=== PATIENT | female | born 1940 | race Caucasian/White ===

== ENCOUNTER 2016-10-15 17:15 | Inpatient (IN) ==
--- NOTE | 2016-10-15 17:28 | Emergency Department Note ---
Disposition Clinical Impression: Acute exacerbation of chronic obstructive airways disease, Community acquired pneumonia Disposition: Admitted As Inpatient SOB HPI - General Chief Complaint: ED Shortness of Breath/Dyspnea Stated Complaint: bi lateral pneumonia Time Seen by Provider: 10/15/16 17:28 Source: patient, family Mode of arrival: private vehicle Limitations: no limitations Nursing Notes Reviewed: Yes Vital Signs Reviewed: Yes - History of Present Illness Patient reports that she has had increased cough which has been dry for about 3 weeks. Last 24 hour she has had more cough, fever, wheezing and weakness. She reports she occasionally has had some nausea or vomiting, but mainly with cough. She went to urgent care today and had a negative flu swab and a chest x- ray read as likely bilateral basilar pneumonia. She was written for clarithromycin and had gone this [facility] They did not have the antibiotic available and she is coming here for recheck. She denies any chest pain. She states she does have home oxygen, home inhalers and nebulized treatments. She states she is here because she is just too weak to go home. Pt Subjective Complaint: shortness of breath, cough Onset (ago): week(s) Context: recent illness Severity: moderate Consistency/Duration: gradually worsening Improves with: oxygen Worsens with: exertion, coughing Known history of: COPD, congestive heart failure Associated symptoms: Reports: fever, cough, wheezing, sputum production, nausea/ vomiting. Denies: chest pain, pain with inspiration, orthopnea, lower extremity pain, polyuria, polydipsia, parasthesias, palpitations, hemoptysis, diaphoresis, syncope, abdominal pain, rash Treatment prior to arrival: oxygen, bronchodilator Cough present: Yes Cough Description: Voluntary, Non-Productive, Hacking Cough Frequency: Intermittent Sputum production: No - Related Data Home oxygen amount: 2 liters (When necessary) Home Medications Medication Instructions Recorded Confirmed Aspirin [Adult Low Dose Aspirin EC] 162 mg PO DAILY 06/07/15 10/15/16 Labetalol [Trandate] 300 mg PO BID 06/07/15 10/15/16 Sertraline [Zoloft] 100 mg PO DAILY 06/07/15 10/15/16 Previous Rx's Medication Instructions Recorded Benzonatate [Tessalon] 200 mg PO TID PRN #0 capsule 07/28/16 CloNIDine HCl 0.2 mg PO BID tablet 07/28/16 HydrALAZINE 50 mg PO Q8HR 30 Days 07/28/16 Ipratropium/Albuterol Neb [Duoneb] 3 ml IH [id number] PRN #0 inhsol 07/28/16 Benzonatate [Tessalon] 100 mg PO TID #30 capsule 10/15/16 Clarithromycin 250 mg PO BID #14 tablet 10/15/16 Guaifenesin [Mucinex] 600 mg PO BID #20 tab.er.12h 10/15/16 PredniSONE [Deltasone] 20 mg PO DAILY #12 tablet 10/15/16 Allergies Allergy/AdvReac Type Severity Reaction Status Date / Time amlodipine [From Norvasc] Allergy Hives Verified 10/15/16 12:10 Amoxicillin Allergy Hives Verified 10/15/16 12:10 atorvastatin [From Lipitor] Allergy Hives Verified 10/15/16 12:10 cefdinir [From Omnicef] Allergy Hives Verified 10/15/16 12:10 cefuroxime [From Ceftin] Allergy Hives Verified 10/15/16 12:10 cephalexin [From Keflex] Allergy Hives Verified 10/15/16 12:10 ciprofloxacin [From Cipro] Allergy Hives Verified 10/15/16 12:10 doxycycline Allergy Hives Verified 10/15/16 12:10 fluoxetine [From Prozac] Allergy Hives Verified 10/15/16 12:10 iodine Allergy Hives Verified 10/15/16 12:10 levofloxacin [From Levaquin] Allergy Hives Verified 10/15/16 12:10 metoprolol Allergy Hives Verified 10/15/16 12:10 nifedipine Allergy Hives Verified 10/15/16 12:10 Paroxetine [From Paxil] Allergy Hives Verified 10/15/16 12:10 Prazosin Allergy Hives Verified 10/15/16 12:10 Saxagliptin [From Onglyza] Allergy Hives Verified 10/15/16 12:10 simvastatin [From Zocor] Allergy Hives Verified 10/15/16 12:10 sitagliptin [From Januvia] Allergy Hives Verified 10/15/16 12:10 sulfamethoxazole Allergy Hives Verified 10/15/16 12:10 [From Bactrim] trimethoprim [From Bactrim] Allergy Hives Verified 10/15/16 12:10 Oxycodone AdvReac Headache Verified 10/15/16 12:10 All systems ED: reviewed and negative except as stated. Past Medical History - Past Medical History Attestation: Yes The following information was validated with the patient. Source: patient, obtained from family, nursing notes reviewed Medical history: Reports: arthritis, asthma, cancer, CHF, COPD, DVT, diabetes, GERD, hyperlipidemia, hypertension, kidney stones, malignancy, osteoporosis, peripheral artery disease, renal disease, venous stasis, other Surgical history: Reports: appendectomy, cancer surgery (Left nephrectomy for renal cell carcinoma), cholecystectomy, knee replacement, other Psychiatric history: Reports: anxiety, depression, other CABLE REELER history: Reports: no CABLE REELER history - Social History Smoking Status: Never smoker Smokeless Tobacco Status: No Alcohol use: Reports: none Drug use: Reports: none Physical Exam - General Limitations: no limitations General appearance: alert, in distress - Head Head exam: atraumatic, normocephalic, normal inspection - Eye Eye exam: Present: normal appearance, PERRL, EOMI - ENT ENT exam: normal exam, normal oropharynx, mucous membranes moist - Neck Neck exam: Present: normal inspection, full ROM, trachea midline - Chest Chest inspection: Present: normal inspection, symmetric chest wall rise - Respiratory Respiratory exam: Present: wheezes, prolonged expiratory phase. Absent: respiratory distress, accessory muscle use - Cardiovascular Cardiovascular exam: Present: regular rate, normal rhythm, normal heart sounds. Absent: tachycardia - Abdominal Exam Abdominal exam: Present: soft, Non-Tender, normal bowel sounds. Absent: tenderness, distention, guarding, rebound, rigidity - Extremities Exam Extremities exam: Present: normal inspection, full ROM, normal capillary refill. Absent: tenderness, pedal edema - Expanded Lower Extremity Exam Neurovascular/Tendon exam: Present: normal capillary refill. Absent: motor deficit, sensory deficit, tendon deficit Gait: not tested/not observed - Back Exam Back exam: Present: normal inspection, full ROM. Absent: tenderness, CVA tenderness (R), CVA tenderness (L) - Neurological Exam Neurological exam: Present: alert, oriented X3 - Psychiatric Psychiatric exam: Present: normal affect, normal mood - Skin Skin exam: Present: warm, dry, intact, normal color. Absent: diaphoresis, pallor Course Course Narrative: Care discussed with length with the patient, family and ultimately with Dr. Pennington. Given there earlier x-ray findings he is agreeable to have her in for IV fluids, IV antibiotics and respiratory treatment. I am coordinating inpatient bed with orders received. Vital Signs Temperature 100.1 F H 10/15/16 17:18 Pulse Rate 76 10/15/16 17:18 Respiratory Rate 18 10/15/16 17:18 Blood Pressure 127/78 10/15/16 17:18 O2 Sat by Pulse Oximetry 91 L 10/15/16 17:18 Temperature 100.1 F H 10/15/16 17:39 Pulse Rate 76 10/15/16 17:39 Respiratory Rate 18 10/15/16 17:39 Blood Pressure 127/78 10/15/16 17:39 O2 Sat by Pulse Oximetry 91 L 10/15/16 17:39 Oxygen Delivery Oxygen Delivery Room Air Shortness of Breath/Dyspnea - Differential Diagnosis Likely: acute exacerbation of chronic obstructive airways disease, pneumonia - Medical Records Medical records reviewed: Yes I reviewed the patient's medical records. Patient's chest x-ray from earlier today demonstrated "left and possible right basilar airspace disease", "likely pneumonia". - Lab Data Lab results reviewed: Yes I reviewed the patient's lab results. Result diagrams: 10/15/16 17:59 Lab Results 10/15/16 10/15/16 Range/Units 17:59 17:59 WBC 9.3 (4.3-11.1) K/mcL RBC 4.29 (3.82-4.97) M/mcL Hgb 11.3 L (11.5-15.4) g/dL Hct 35.6 (35.3-44.9) % MCV 83.0 (83.0-100.0) fL MCH 26.3 L (28.0-33.3) pg MCHC 31.7 (31.6-35.5) g/dL RDW 15.2 H (11.5-14.5) % Plt Count 110 L (140-400) K/mcL MPV 10.6 (9.4-12.4) fL Immature Gran % 0.4 (0-4) % Seg Neutrophils % 81.6 % Lymphocytes % 9.0 % Monocytes % 8.3 % Eosinophils % 0.4 % Basophils % 0.3 % Neutrophils # 7.6 (1.6-8.9) K/mcL Lymphocytes # 0.8 (0.6-4.6) K/mcL Monocytes # 0.8 (0.0-1.3) K/mcL Eosinophils # 0.0 (0.0-0.6) K/mcL Basophils # 0.0 (0.0-0.2) K/mcL VBG Lactic Acid 0.9 (0.5-2.2) mmol/L
[2016-10-15] MEDS ORDERED: Azithromycin 500 MG in D5% in Water 250 ML IVPB ONE (17:39)
[2016-10-15] MEDS ORDERED: 0.9 % Sodium Chloride 1,000 ML IVC SCH ×3 (17:45→21:42)
[2016-10-15 18:09] LABS: Basophils % 0.3 %; Eosinophils % 0.4 %; Hematocrit 35.6 % (35.3-44.9); Hemoglobin 11.3 g/dL (11.5-15.4); Immature Granulocytes % 0.4 % (0-4); Lymphocytes # 0.8 K/mcL (0.6-4.6); Mean Corpuscular HGB Conc 31.7 g/dL (31.6-35.5); Mean Corpuscular Hemoglobin 26.3 pg (28.0-33.3); Mean Platelet Volume 10.6 fL (9.4-12.4); Monocytes # 0.8 K/mcL (0.0-1.3); Monocytes % 8.3 %; Neutrophils # 7.6 K/mcL (1.6-8.9); Platelet Count 110 K/mcL (140-400); Red Blood Count 4.29 M/mcL (3.82-4.97); Red Cell Distribution Width 15.2 % (11.5-14.5); Segmented Neutrophils % 81.6 %
[2016-10-15 18:23] LABS: Calcium 8.5 mg/dL (8.6-10.8); Potassium 3.1 mEq/L (3.5-4.5)
[2016-10-15] MEDS ORDERED: Naloxone 0.4 MG/ML INJ IVP PRN (21:42)
[2016-10-15] MEDS ORDERED: MOM Conc 10 ML UD.LIQ PO PRN (21:42)
[2016-10-16] MEDS: Acetaminophen 325 MG TABLET PO PRN ×3 (00:03→22:45)
[2016-10-16] MEDS: Benzonatate 100 MG CAPSULE PO PRN ×3 (06:11→20:50)
[2016-10-16] MEDS: Albuterol 2.5 MG/3 ML NEBULIZER IH PRN ×4 (06:30→22:14)
[2016-10-16] MEDS ORDERED: Azithromycin 250 MG in D5% in Water 250 ML IVPB SCH (09:00)
--- NOTE | 2016-10-16 14:10 | Internal Med History&Physical ---
Date of Encounter: 10/16/16 Time of Encounter: 13:40 Assessment and Plan (1) Community acquired pneumonia Current visit: Yes Status: Acute She will be given Zithromax IV. Lactobacillus will be added. (2) Anemia Current visit: No Status: Chronic We will check anemia testing in a.m. Qualifiers: Anemia type: unspecified type Qualified Code(s): D64.9 - Anemia, unspecified (3) Type 2 diabetes mellitus Current visit: No Status: Chronic Hemoglobin A1c was 7.2% on 03/28/2016. We will recheck in a.m. Qualifiers: Diabetes mellitus mcfp insulin use: unspecified mcfp insulin use status Chronic kidney disease stage: stage 3 (moderate) Qualified Code(s): E11.22 - Type 2 diabetes mellitus with diabetic chronic kidney disease; N18.3 - Chronic kidney disease, stage 3 (moderate) (4) Gout Current visit: Yes Status: Acute We will check uric acid level in a.m. Allopurinol was not on her home medication list at this time. Qualifiers: Gout site: unspecified site Gout etiology: unspecified cause Chronicity: chronic Presence of tophus: without tophus Qualified Code(s): M1A.9XX0 - Chronic gout, unspecified, without tophus (tophi) Internal Medicine - H&P: HPI Chief complaint: Cough , dyspnea, and vomiting Admitted From: Home Plans for Post Hospital Care: Home History of present illness: Ms. Thorpe is a 76 year old female who came to emergency room stating she had onset of a cough approximately 3 weeks earlier. She did not feel well overall. The evening of October 14 her cough seemed worse and she developed fevers and myalgias. She went to urgent care on the following day where chest x-ray showed bibasilar infiltrates. She tested negative for influenza. She was directed to come to emergency room where she was further evaluated and admitted to [facility] floor for ongoing care needs. Her respiratory history is significant for having smoked from age [age] up to one half pack per day. She wears oxygen at bedtime. She has a diagnosis of asthma and bronchitis. She has been diagnosed with sleep apnea but does not presently use CPAP/BiPAP. Past Med Surg Social Fam HX - Past Medical History Medical history: arthritis, asthma, cancer, CHF, COPD, GERD, hyperlipidemia, hypertension, kidney stones, malignancy, osteoporosis, peripheral artery disease , renal disease, venous stasis, other Psychiatric history: anxiety, depression, other - Past Surgical History Surgical History: appendectomy, cancer surgery, cholecystectomy, knee replacement, other - Social History Smoking Status: Former smoker Packs per day: 1 pack Smokeless Tobacco Status: No Alcohol use: none Drug use: none - Family History Mother Living Status: Hx Family Cardiac Disorders: Yes Hx Family Respiratory Disorders: No Hx Family Cancer: No Hx Family GI Disorders: No Hx Family Genitourinary Disorders: No Hx Family Endocrine Disorder: No Hx Family Neuromuscular Disorders: No Hx Family Neurologic Disorders: No Hx Family HEENT Disorders: No Hx Family Autoimmune Disorders: No Hx Family Reproductive Disorders: No Hx Family Psychosocial Disorders: No Hx Family Medical Disorders: No Internal Medicine - H&P: Meds Aspirin [Adult Low Dose Aspirin EC] 162 mg PO DAILY 06/07/15 [History] Labetalol [Trandate] 300 mg PO BID 06/07/15 [History] Sertraline [Zoloft] 100 mg PO DAILY 06/07/15 [History] Benzonatate [Tessalon] 200 mg PO TID PRN #0 capsule 07/28/16 [Rx] CloNIDine HCl 0.2 mg PO BID tablet 07/28/16 [Rx] HydrALAZINE 50 mg PO Q8HR 30 Days 07/28/16 [Rx] Ipratropium/Albuterol Neb [Duoneb] 3 ml IH [id number] PRN #0 inhsol 07/28/16 [Rx] Benzonatate [Tessalon] 100 mg PO TID #30 capsule 10/15/16 [Rx] Clarithromycin 250 mg PO BID #14 tablet 10/15/16 [Rx] Guaifenesin [Mucinex] 600 mg PO BID #20 tab.er.12h 10/15/16 [Rx] PredniSONE [Deltasone] 20 mg PO DAILY #12 tablet 10/15/16 [Rx] Allergies amlodipine [From Norvasc] Allergy (Verified 10/15/16 12:10) Hives Amoxicillin Allergy (Verified 10/15/16 12:10) Hives atorvastatin [From Lipitor] Allergy (Verified 10/15/16 12:10) Hives cefdinir [From Omnicef] Allergy (Verified 10/15/16 12:10) Hives cefuroxime [From Ceftin] Allergy (Verified 10/15/16 12:10) Hives cephalexin [From Keflex] Allergy (Verified 10/15/16 12:10) Hives ciprofloxacin [From Cipro] Allergy (Verified 10/15/16 12:10) Hives doxycycline Allergy (Verified 10/15/16 12:10) Hives fluoxetine [From Prozac] Allergy (Verified 10/15/16 12:10) Hives iodine Allergy (Verified 10/15/16 12:10) Hives levofloxacin [From Levaquin] Allergy (Verified 10/15/16 12:10) Hives metoprolol Allergy (Verified 10/15/16 12:10) Hives nifedipine Allergy (Verified 10/15/16 12:10) Hives Paroxetine [From Paxil] Allergy (Verified 10/15/16 12:10) Hives Prazosin Allergy (Verified 10/15/16 12:10) Hives Saxagliptin [From Onglyza] Allergy (Verified 10/15/16 12:10) Hives simvastatin [From Zocor] Allergy (Verified 10/15/16 12:10) Hives sitagliptin [From Januvia] Allergy (Verified 10/15/16 12:10) Hives sulfamethoxazole [From Bactrim] Allergy (Verified 10/15/16 12:10) Hives trimethoprim [From Bactrim] Allergy (Verified 10/15/16 12:10) Hives Oxycodone Adverse Reaction (Verified 10/15/16 12:10) Headache All Systems PM: A 10-system review of systems was performed and is negative for pertinent findings except as documented above in the HPI. Review of systems: Gen.: Her weight has been stable since the May 2015 hospitalization at approximately 82 kg Cardiovascular: She has history of hypertension and PVCs. She has not seen a scoop operator since approximately 2012 She has no known OR heart failure DVT or pulmonary embolus. Respiratory: As per history of present illness GI: She had a cholecystectomy 2000 but denies disorders of her liver or exocrine pancreas : She has had kidney stones in the past. She had left renal cancer with left nephrectomy performed in 1995. This apparently was curative. She has CKD stage 3-4 and follows with a [employer] Neurologic: She denies large distribution strokes or seizures. Endocrine: She was diagnosed with DM 2 approximately 2003. 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 She now uses a motorized wheelchair. She denies known thyroid disease. Hematology/oncology: She had left renal cancer as per above but denies other internal malignancies or anemia Musculoskeletal: She has diagnoses of gout, DJD, and osteoporosis. - Constitutional Vitals: Temp Pulse Resp BP Pulse Ox 99.6 F 75 20 167/81 96 10/16/16 06:49 10/16/16 06:49 10/16/16 12:59 10/16/16 06:49 10/16/16 12:59 Exam: Gen.: She is well-developed well-nourished female sitting in a chair who appears in minimal respiratory distress at present time. HEENT: Head is atraumatic and normocephalic. Eyes: EOMI. There is no scleral icterus. Mouth: Mucosa is moist. Neck: Supple and nontender. There is no thyromegaly or adenopathy noted. Heart: Regular without murmurs gallops or ectopics. Lungs: No wheezes or crackles are heard. Abdomen: Soft and nontender. No masses or guarding are noted. Exam is limited because she is in the seated position. Extremities: There is no cyanosis edema or clubbing noted. Dorsalis pedis and posterior tibial pulses are 1-2 over 2 bilaterally. Neurologic: Mental status: She is talkative and a good historian. Cranial nerves: Smile is symmetric. Forehead wrinkles bilaterally. Tongue protrudes midline. EOMI. Motor: There is no pronator drift. Cerebellar: Finger to nose is intact bilaterally. Skin: Warm and dry Internal Med - H&P Results - Labs CBC & Chem 7: 10/15/16 17:59 10/15/16 17:59 - VTE Documentation of Mechanical Device: Graduated compression elastic hosiery
[2016-10-16] MEDS: 0.45 % Sodium Chloride w/KCl 20 MEQ/1,000 ML MLS IVC SCH (14:31)
[2016-10-16] MEDS: *HR* Enoxaparin 30 MG/0.3 ML SYRINGE SQ SCH ×2 (15:32→15:56)
[2016-10-16] MEDS: Lactobacillus 1 EACH CAP.SPRINK PO SCH (20:39)
[2016-10-17] MEDS: Albuterol 2.5 MG/3 ML NEBULIZER IH PRN ×3 (05:17→22:05)
[2016-10-17] MEDS: 0.45 % Sodium Chloride w/KCl 20 MEQ/1,000 ML MLS IVC SCH (05:31)
[2016-10-17] MEDS: *HR* Enoxaparin 30 MG/0.3 ML SYRINGE SQ SCH (05:32)
[2016-10-17 06:29] LABS: Basophils % 0.4 %; Eosinophils # 0.1 K/mcL (0.0-0.6); Eosinophils % 2.6 %; Hematocrit 35.2 % (35.3-44.9); Hemoglobin 10.8 g/dL (11.5-15.4); Immature Granulocytes % 0.2 % (0-4); Lymphocytes # 1.1 K/mcL (0.6-4.6); Mean Corpuscular HGB Conc 30.7 g/dL (31.6-35.5); Mean Corpuscular Hemoglobin 26.2 pg (28.0-33.3); Mean Corpuscular Volume 85.2 fL (83.0-100.0); Mean Platelet Volume 11.3 fL (9.4-12.4); Monocytes # 0.6 K/mcL (0.0-1.3); Monocytes % 10.8 %; Neutrophils # 3.5 K/mcL (1.6-8.9); Red Blood Count 4.13 M/mcL (3.82-4.97); Red Cell Distribution Width 15.2 % (11.5-14.5)
[2016-10-17 06:57] LABS: Platelet Count 81 K/mcL (140-400)
[2016-10-17 07:09] LABS: Magnesium 1.8 mg/dL (1.6-2.6); Uric Acid 7.6 mg/dL (2.6-6.0)
[2016-10-17 08:17] LABS: Hemoglobin A1C 6.8 %
[2016-10-17] MEDS: Lactobacillus 1 EACH CAP.SPRINK PO SCH ×2 (08:26→22:37)
[2016-10-17] MEDS ORDERED: Azithromycin 500 MG in D5% in Water 250 ML IVPB SCH (11:00)
--- NOTE | 2016-10-17 11:09 | Internal Med Progress Note ---
Date of Encounter: 10/17/16 Time of Encounter: 10:45 - Assessment and plan (1) Community acquired pneumonia Current Visit: Yes Status: Acute Assessment and plan: October 17. Continue IV Zithromax. WBC and left shift have improved (2) Anemia Current Visit: No Status: Chronic Assessment and plan: October 17. Anemia testing is pending Qualifiers: Anemia type: unspecified type Qualified Code(s): D64.9 - Anemia, unspecified (3) Type 2 diabetes mellitus Current Visit: No Status: Chronic Assessment and plan: October 17. Hemoglobin A1c is acceptable at 6.8%. Continue Accu-Cheks with SSI Qualifiers: Diabetes mellitus termite renewal inspector insulin use: unspecified termite renewal inspector insulin use status Chronic kidney disease stage: stage 3 (moderate) Qualified Code(s): E11.22 - Type 2 diabetes mellitus with diabetic chronic kidney disease; N18.3 - Chronic kidney disease, stage 3 (moderate) (4) Gout Current Visit: Yes Status: Acute Assessment and plan: October 17. Uric acid level is elevated at 7.6%. We will restart allopurinol Qualifiers: Gout site: unspecified site Gout etiology: unspecified cause Chronicity: chronic Presence of tophus: without tophus Qualified Code(s): M1A.9XX0 - Chronic gout, unspecified, without tophus (tophi) - Subjective Interval history: October 17. She has no new complaints and states she feels improved. - Constitutional Vitals: Temp Pulse Resp BP Pulse Ox 98.7 F 60 20 162/65 99 10/17/16 08:17 10/17/16 08:17 10/17/16 08:17 10/17/16 08:17 10/17/16 08:34 Exam: She is resting comfortably in bed. Her affect is bright and cheerful. She is talkative and appropriate in conversation. Her lungs show few expiratory wheezes diffusely. No inspiratory crackles are heard. I reviewed her medications and lab results. Internal Medicine: Result - Labs CBC & Chem 7: 10/17/16 05:17 10/15/16 17:59 Labs: Short CBC 10/17/16 Range/Units 05:17 WBC 5.3 (4.3-11.1) K/mcL Hgb 10.8 L (11.5-15.4) g/dL Hct 35.2 L (35.3-44.9) % Plt Count 81 L (140-400) K/mcL Neutrophils # 3.5 (1.6-8.9) K/mcL - VTE Documentation of Mechanical Device: Graduated compression elastic hosiery Consult Discharge Plan - Plan Referrals: Mark Hernandez DO [Primary Care Provider] - 1 week
[2016-10-17 11:23] LABS: Folate 13.2 ng/mL (7.0-31.4)
[2016-10-17] MEDS: Budesonide/Formoterol 160/4.5 MDI IH SCH ×2 (11:26→22:05)
[2016-10-17] MEDS: Azithromycin 500 MG in D5% in Water 250 ML IVPB SCH (12:22)
[2016-10-17] MEDS: PredniSONE 10 MG TABLET PO SCH ×2 (12:22→17:35)
[2016-10-17 16:16] LABS: Calcium 8.2 mg/dL (8.6-10.8)
[2016-10-17] MEDS: Benzonatate 100 MG CAPSULE PO PRN (22:37)
[2016-10-18] MEDS: *HR* Enoxaparin 30 MG/0.3 ML SYRINGE SQ SCH (05:48)
[2016-10-18] MEDS: Lactobacillus 1 EACH CAP.SPRINK PO SCH ×2 (08:48→21:21)
[2016-10-18] MEDS: PredniSONE 10 MG TABLET PO SCH ×2 (08:49→16:23)
[2016-10-18] MEDS: Albuterol 2.5 MG/3 ML NEBULIZER IH PRN ×5 (09:54→20:20)
[2016-10-18] MEDS: Budesonide/Formoterol 160/4.5 MDI IH SCH ×2 (09:54→21:59)
[2016-10-18] MEDS: Benzonatate 100 MG CAPSULE PO PRN ×2 (10:00→22:15)
--- NOTE | 2016-10-18 11:40 | Internal Med Progress Note ---
Date of Encounter: 10/18/16 Time of Encounter: 11:30 - Assessment and plan (1) Community acquired pneumonia Current Visit: Yes Status: Acute Assessment and plan: October 17. Continue IV Zithromax. WBC and left shift have improved October 18. Continue IV Zithromax. We will recheck labs in a.m. (2) Anemia Current Visit: No Status: Chronic Assessment and plan: October 17. Anemia testing is pending October 18. Anemia test results showed iron 18, transferrin saturation 5%, ferritin 115, and B12 183. I will start her on ferrous sulfate with vitamin C and B12 supplement. Qualifiers: Anemia type: unspecified type Qualified Code(s): D64.9 - Anemia, unspecified (3) Type 2 diabetes mellitus Current Visit: No Status: Chronic Assessment and plan: October 17. Hemoglobin A1c is acceptable at 6.8%. 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 Uric acid level is elevated at 7.6%. We will restart allopurinol October 18. Continue allopurinol Qualifiers: Gout site: unspecified site Gout etiology: unspecified cause Chronicity: chronic Presence of tophus: without tophus Qualified Code(s): M1A.9XX0 - Chronic gout, unspecified, without tophus (tophi) (5) Hypertension Current Visit: Yes Status: Chronic Assessment and plan: October 18. Blood pressures are inadequately controlled with clonidine, hydralazine, and labetalol at present doses. Will increase hydralazine Qualifiers: Hypertension type: essential hypertension Qualified Code(s): I10 - Essential (primary) hypertension (6) Hypokalemia Current Visit: Yes Status: Acute Assessment and plan: October 18. We will give potassium supplement and recheck labs in a.m. - Subjective Interval history: October 17. She has no new complaints and states she feels improved. October 18. She still has significant dyspnea. - Constitutional Vitals: Temp Pulse Resp BP Pulse Ox 98.7 F 62 18 158/85 97 10/18/16 11:15 10/18/16 11:15 10/18/16 11:15 10/18/16 06:56 10/18/16 11:15 Exam: She is lying in bed. She has prolonged expiratory phase with mild wheezing and scattered rhonchi. Heart is regular without murmurs gallops or ectopics. Extremities show no edema. I reviewed her medications and lab results. Internal Medicine: Result - Labs CBC & Chem 7: 10/17/16 05:17 10/17/16 10:42 Labs: BMP 10/17/16 10:42 Sodium 141 Potassium 3.0 L Chloride 102 Carbon Dioxide 26 BUN 21 H Creatinine 1.17 H Glucose 122 H Calcium 8.2 L - VTE Documentation of Mechanical Device: Graduated compression elastic hosiery Consult Discharge Plan - Plan Referrals: Mark Hernandez DO [Primary Care Provider] - 1 week
[2016-10-18] MEDS ORDERED: Cyanocobalamin (B-12) 1,000 MCG/ML VIAL IM ONE (11:46)
[2016-10-18] MEDS: Azithromycin 500 MG in D5% in Water 250 ML IVPB SCH (12:08)
[2016-10-19] MEDS: Albuterol 2.5 MG/3 ML NEBULIZER IH PRN ×2 (00:43→07:45)
[2016-10-19 03:12] VITALS: BP 161/84
[2016-10-19 05:06] LABS: Basophils % 0.2 %; Hematocrit 35.6 % (35.3-44.9); Hemoglobin 10.9 g/dL (11.5-15.4); Immature Granulocytes % 0.9 % (0-4); Lymphocytes # 1.1 K/mcL (0.6-4.6); Lymphocytes % 19.8 %; Mean Corpuscular HGB Conc 30.6 g/dL (31.6-35.5); Mean Platelet Volume 11.5 fL (9.4-12.4); Monocytes # 0.6 K/mcL (0.0-1.3); Monocytes % 10.9 %; Neutrophils # 3.9 K/mcL (1.6-8.9); Platelet Count 119 K/mcL (140-400); Red Blood Count 4.19 M/mcL (3.82-4.97); Red Cell Distribution Width 14.9 % (11.5-14.5); Segmented Neutrophils % 68.2 %
[2016-10-19 05:22] LABS: Calcium 8.7 mg/dL (8.6-10.8); Potassium 3.7 mEq/L (3.5-4.5)
[2016-10-19] MEDS ORDERED: Ascorbic Acid 500 MG TABLET PO SCH (06:30)
[2016-10-19] MEDS: Budesonide/Formoterol 160/4.5 MDI IH SCH (07:45)
[2016-10-19] MEDS: *HR* Enoxaparin 30 MG/0.3 ML SYRINGE SQ SCH (07:52)
[2016-10-19] MEDS: Lactobacillus 1 EACH CAP.SPRINK PO SCH (07:53)
[2016-10-19] MEDS: PredniSONE 10 MG TABLET PO SCH (07:54)
--- NOTE | 2016-10-19 10:10 | Discharge Summary ---
Date of Encounter: 10/19/16 Time of Encounter: 09:50 - Discharge Diagnosis (1) Community acquired pneumonia Priority: Primary Status: Acute (2) Anemia Priority: Secondary Status: Chronic Qualifiers: Anemia type: unspecified type Qualified Code(s): D64.9 - Anemia, unspecified (3) Type 2 diabetes mellitus Priority: Secondary Status: Chronic Qualifiers: Diabetes mellitus fci insulin use: unspecified fci insulin use status Chronic kidney disease stage: stage 3 (moderate) Qualified Code(s): E11.22 - Type 2 diabetes mellitus with diabetic chronic kidney disease; N18.3 - Chronic kidney disease, stage 3 (moderate) (4) Gout Priority: Secondary Status: Acute Qualifiers: Gout site: unspecified site Gout etiology: unspecified cause Chronicity: chronic Presence of tophus: without tophus Qualified Code(s): M1A.9XX0 - Chronic gout, unspecified, without tophus (tophi) (5) Hypertension Priority: Secondary Status: Chronic Qualifiers: Hypertension type: essential hypertension Qualified Code(s): I10 - Essential (primary) hypertension (6) Hypokalemia Priority: Secondary Status: Resolved - Discharge Medications Prescriptions: HydrALAZINE 50 mg PO Q8HR #180 tablet Allopurinol [Zyloprim 100 MG] 200 mg PO DAILY #60 tablet Ascorbic Acid [Vitamin C] 500 mg PO DAILY@0630 #30 tablet Azithromycin [Zithromax] 250 mg PO Q24H #3 tablet CloNIDine HCl 0.3 mg PO BID #180 tablet Cyanocobalamin (B-12) [Vitamin B12] 1,000 mcg PO DAILY #30 tablet Ferrous Sulfate 325 mg PO DAILY@0630 #30 tablet Lactobacillus [Culturelle] 1 each PO BID #6 cap.sprink PredniSONE 10 mg PO BIDWM #6 tablet Home Medications: Aspirin [Adult Low Dose Aspirin EC] 162 mg PO DAILY 06/07/15 [History] Labetalol [Trandate] 300 mg PO BID 06/07/15 [History] Sertraline [Zoloft] 100 mg PO DAILY 06/07/15 [History] Benzonatate [Tessalon] 200 mg PO TID PRN #0 capsule 07/28/16 [Rx] Ipratropium/Albuterol Neb [Duoneb] 3 ml IH [id number] PRN #0 inhsol 07/28/16 [Rx] Guaifenesin [Mucinex] 600 mg PO BID #20 tab.er.12h 10/15/16 [Rx] Allopurinol [Zyloprim 100 MG] 200 mg PO DAILY #60 tablet 10/19/16 [Rx] Ascorbic Acid [Vitamin C] 500 mg PO DAILY@0630 #30 tablet 10/19/16 [Rx] Azithromycin [Zithromax] 250 mg PO Q24H #3 tablet 10/19/16 [Rx] CloNIDine HCl 0.3 mg PO BID #180 tablet 10/19/16 [Rx] Cyanocobalamin (B-12) [Vitamin B12] 1,000 mcg PO DAILY #30 tablet 10/19/16 [Rx] Ferrous Sulfate 325 mg PO DAILY@0630 #30 tablet 10/19/16 [Rx] HydrALAZINE 50 mg PO Q8HR #180 tablet 10/19/16 [Rx] Lactobacillus [Culturelle] 1 each PO BID #6 cap.sprink 10/19/16 [Rx] PredniSONE 10 mg PO BIDWM #6 tablet 10/19/16 [Rx] Allergies/Adverse Reactions: Allergies amlodipine [From Norvasc] Allergy (Verified 10/15/16 12:10) Hives Amoxicillin Allergy (Verified 10/15/16 12:10) Hives atorvastatin [From Lipitor] Allergy (Verified 10/15/16 12:10) Hives cefdinir [From Omnicef] Allergy (Verified 10/15/16 12:10) Hives cefuroxime [From Ceftin] Allergy (Verified 10/15/16 12:10) Hives cephalexin [From Keflex] Allergy (Verified 10/15/16 12:10) Hives ciprofloxacin [From Cipro] Allergy (Verified 10/15/16 12:10) Hives doxycycline Allergy (Verified 10/15/16 12:10) Hives fluoxetine [From Prozac] Allergy (Verified 10/15/16 12:10) Hives iodine Allergy (Verified 10/15/16 12:10) Hives levofloxacin [From Levaquin] Allergy (Verified 10/15/16 12:10) Hives metoprolol Allergy (Verified 10/15/16 12:10) Hives nifedipine Allergy (Verified 10/15/16 12:10) Hives Paroxetine [From Paxil] Allergy (Verified 10/15/16 12:10) Hives Prazosin Allergy (Verified 10/15/16 12:10) Hives Saxagliptin [From Onglyza] Allergy (Verified 10/15/16 12:10) Hives simvastatin [From Zocor] Allergy (Verified 10/15/16 12:10) Hives sitagliptin [From Januvia] Allergy (Verified 10/15/16 12:10) Hives sulfamethoxazole [From Bactrim] Allergy (Verified 10/15/16 12:10) Hives trimethoprim [From Bactrim] Allergy (Verified 10/15/16 12:10) Hives Oxycodone Adverse Reaction (Verified 10/15/16 12:10) Headache Date of admission: 10/16/16 16:08 Primary care physician: Mark Hernandez, - Patient Status Disposition: Home, Self-Care Overall status at discharge: patient is progressing back to baseline - Discharge Instructions Follow Up With: Alejandra Osman, HEAD CD REACTOR OPERATOR [Advanced Practice Nurse] - 1 week - Diet and Activity Activity: resume usual activities as tolerated Diet: diabetic diet Hospital course: Ms. Thorpe is a 76 year old female who came to emergency room stating she had onset of a cough approximately 3 weeks earlier. She did not feel well overall. The evening of October 14 her cough seemed worse and she developed fevers and myalgias. She went to urgent care on the following day where chest x-ray showed bibasilar infiltrates. She tested negative for influenza. She was directed to come to emergency room where she was further evaluated and admitted to [facility] floor for ongoing care needs. Initial orders were written by the emergency room physician. I saw her on October 16 and performed the history and physical. She was started on IV Zithromax. She had multiple medication allergies which limited choice of antibiotics. She had clinical improvement and felt stable for discharge home by October 19. WBC remained normal during her hospital stay and was 5.7 K on the day of discharge with 68.2% segs. She will continue with anabiotic and probiotic for 3 additional days at discharge. Supplemental potassium was given her potassium level normalized to 3.7 by the day of discharge. Azotemia improved with creatinine being 1.11 and estimated GFR 48 on the day of discharge. Uric acid level returned elevated at 7.6 and she was restarted on allopurinol. Anemia testing showed iron low at 18, transferrin saturation 5%, and ferritin 115. B12 was low at 183 and folate normal at 13.2. She was started on supplement ferrous sulfate with vitamin C and oral B12. She felt significantly improved when I saw her on October 19 and felt stable for discharge home. She will follow with Alejandra Osman CNP within 1 week. - Time Spent with Patient Total time spent providing and/or coordinating discharge services: - Constitutional Vitals: Temp Pulse Resp BP Pulse Ox 98.1 F 72 16 161/84 98 10/19/16 03:12 10/19/16 03:12 10/19/16 07:49 10/19/16 03:12 10/19/16 07:49 - VTE Documentation of Mechanical Device: Graduated compression elastic hosiery
[2016-10-19] MEDS: Azithromycin 500 MG in D5% in Water 250 ML IVPB SCH (10:59)
[2016-10-19] MEDS ORDERED: PredniSONE 20 MG TABLET PO SCH (17:00)
[2016-10-20] MEDS ORDERED: Ascorbic Acid 500 MG TABLET PO SCH (06:30)
== END 2016-10-19 13:45 | disposition home or self-care (01) ==
LOC: INPPIK 17:15 → EMEROOPIK 17:15 → INPPIK 20:34
PROVIDERS: ADMIT Internal Medicine; ATTEND Internal Medicine

== ENCOUNTER 2017-03-12 22:46 | Observation (INO) ==
--- NOTE | 2017-03-12 22:55 | Emergency Department Note ---
Disposition Clinical Impression: Inability to ambulate due to ankle or foot Gout Qualifiers: Gout site: ankle Gout etiology: unspecified cause Chronicity: acute Laterality : left Qualified Code(s): M10.9 - Gout, unspecified Disposition: Admitted As Inpatient Condition: Fair Forms: ED Satisfaction Letter General Adult HPI - General Chief complaint: ED Extremity Injury, Lower Stated complaint: got gout Time Seen by Provider: 03/12/17 22:49 Source: patient, EMS Mode of arrival: EMS Limitations: no limitations Nursing Notes Reviewed: Yes Vital Signs Reviewed: Yes - History of Present Illness HPI Narrative: Patient presents from home by EMS stating "I got gout". She states she has had this before and this time is settled into the left ankle a couple days ago and also most recently to her right great toe. With the bilateral nature of this she is now having difficulty standing and walking and she has not been able to get out of bed to get to the bathroom or kitchen. She states she lives alone and is unable to care for herself at this time. She has been taking allopurinol last week which is increased to twice a day with a flare of her pain. She called her family doctor who called in some prednisone for her and she is advised to start taking that tomorrow morning. She has any other new pain or complaints other than she gets some headaches occasionally. She denies any fall or injury. She has chest pain or palpitation but has had some occasional shortness of breath. She denies nausea, vomiting, diarrhea or abdominal pain. She is on oxygen at night. Onset (ago): day(s) Location: left (Ankle), right (Great toe) Radiation: non-radiation Pain Severity: moderate, severe Quality: aching, sharp Consistency: Worsening Improves with: rest Worsens with: movement Associated symptoms: Reports: headaches, malaise. Denies: confusion, chest pain , cough, diaphoresis, fever/chills, loss of appetite, nausea/vomiting, rash, seizure, shortness of breath, syncope, weakness Treatments Prior to Arrival: other (Allopurinol) - Related Data Home Medications Medication Instructions Recorded Confirmed Aspirin [Adult Low Dose Aspirin EC] 162 mg PO DAILY 06/07/15 01/24/17 Labetalol [Trandate] 300 mg PO BID 06/07/15 01/24/17 Sertraline [Zoloft] 100 mg PO HS 06/07/15 01/24/17 Oxygen 2 l NS AD 10/30/16 01/24/17 Potassium Chloride [K-Tab ER] 10 meq PO DAILY 10/30/16 01/24/17 Triamterene/HCTZ 37.5/25mg 1 each PO DAILY 10/30/16 01/24/17 [Dyazide] hydrALAZINE [HydrALAZINE] 25 mg PO BID 10/30/16 01/24/17 Allopurinol [Zyloprim 100 MG] 200 mg PO DAILY PRN 01/24/17 03/12/17 methylPREDNISolone [Medrol] 03/12/17 Previous Rx's Medication Instructions Recorded Ipratropium/Albuterol Neb [Duoneb] 3 ml IH [id number] PRN #0 inhsol 07/28/16 Cyanocobalamin (B-12) [Vitamin B12] 1,000 mcg PO DAILY #30 tablet 10/19/16 cloNIDine HCl [CloNIDine HCl] 0.3 mg PO BID #180 tablet 10/19/16 Allergies Allergy/AdvReac Type Severity Reaction Status Date / Time amlodipine [From Norvasc] Allergy Hives Verified 01/24/17 19:17 Amoxicillin Allergy Hives Verified 01/24/17 19:17 atorvastatin [From Lipitor] Allergy Hives Verified 01/24/17 19:17 cefdinir [From Omnicef] Allergy Hives Verified 01/24/17 19:17 cefuroxime [From Ceftin] Allergy Hives Verified 01/24/17 19:17 cephalexin [From Keflex] Allergy Hives Verified 01/24/17 19:17 ciprofloxacin [From Cipro] Allergy Hives Verified 01/24/17 19:17 doxycycline Allergy Hives Verified 01/24/17 19:17 fluoxetine [From Prozac] Allergy Hives Verified 01/24/17 19:17 iodine Allergy Hives Verified 01/24/17 19:17 levofloxacin [From Levaquin] Allergy Hives Verified 01/24/17 19:17 metoprolol Allergy Hives Verified 01/24/17 19:17 nifedipine Allergy Hives Verified 01/24/17 19:17 Paroxetine [From Paxil] Allergy Hives Verified 01/24/17 19:17 Prazosin Allergy Hives Verified 01/24/17 19:17 Saxagliptin [From Onglyza] Allergy Hives Verified 01/24/17 19:17 simvastatin [From Zocor] Allergy Hives Verified 01/24/17 19:17 sitagliptin [From Januvia] Allergy Hives Verified 01/24/17 19:17 sulfamethoxazole Allergy Hives Verified 01/24/17 19:17 [From Bactrim] trimethoprim [From Bactrim] Allergy Hives Verified 01/24/17 19:17 Oxycodone AdvReac Headache Verified 01/24/17 19:17 All systems ED: reviewed and negative except as stated. Past Medical History - Past Medical History Attestation: Yes The following information was validated with the patient. Source: patient, old records reviewed, nursing notes reviewed Medical history: Reports: arthritis, asthma, cancer, CHF, COPD, hyperlipidemia, hypertension, kidney stones, malignancy, osteoporosis, peripheral artery disease , renal disease, venous stasis, other Surgical history: Reports: appendectomy, cancer surgery, cholecystectomy, knee replacement, other Psychiatric history: Reports: anxiety, depression, other LOGISTICS SUPPLY OFFICER history: Reports: no LOGISTICS SUPPLY OFFICER history - Social History Smoking Status: Never smoker Smokeless Tobacco Status: No Alcohol use: Reports: none Drug use: Reports: none Physical Exam - General Limitations: no limitations General appearance: alert, in no apparent distress - Head Head exam: atraumatic, normocephalic, normal inspection - Eye Eye exam: Present: normal appearance, PERRL, EOMI. Absent: scleral icterus, conjunctival injection - ENT ENT exam: normal exam, normal oropharynx, mucous membranes moist - Neck Neck exam: Present: normal inspection, full ROM, trachea midline - Chest Chest inspection: Present: normal inspection, symmetric chest wall rise - Respiratory Respiratory exam: Present: normal lung sounds bilaterally. Absent: respiratory distress, wheezes, prolonged expiratory phase - Cardiovascular Cardiovascular exam: Present: regular rate, normal rhythm, normal heart sounds - Abdominal Exam Abdominal exam: Present: soft, Non-Tender, normal bowel sounds. Absent: tenderness, distention, guarding, rebound, rigidity - Expanded Upper Extremity Exam Shoulder exam: Present: normal inspection, full ROM. Absent: tenderness, swelling Arm exam: Present: normal inspection, full ROM Elbow exam: Present: normal inspection, full ROM. Absent: tenderness, swelling Forearm/Wrist exam: Present: normal inspection, full ROM Hand exam: Present: normal inspection, full ROM. Absent: tenderness, swelling Vascular exam: Normal: capillary refill, radial pulse - Expanded Lower Extremity Exam Knee exam: Present: normal inspection, full ROM. Absent: tenderness, swelling Lower leg exam: Present: normal inspection, full ROM. Absent: tenderness, swelling Ankle exam: Present: other (Left ankle has some erythema and exquisite tenderness. Have just mild warmth. Does not appear to be cellulitic type inflammation. She has good distal capillary refill and sensation.() Foot/toe exam: Present: other (Patient has a mild inflammation at the base of the right great toe consistent with a gouty arthritis.) Neurovascular/Tendon exam: Present: normal capillary refill. Absent: motor deficit, sensory deficit, tendon deficit Gait: not tested/not observed - Neurological Exam Neurological exam: Present: alert, oriented X3 - Psychiatric Psychiatric exam: Present: normal affect, normal mood - Skin Skin exam: Present: warm, dry, intact, normal color. Absent: diaphoresis, pallor Course Course Narrative: 2300: Care discussed with the patient on arrival with regard to medications and gout. She is adamant that she does not have the ability to take care of her self at home tonight and feel she needs to be in the hospital for about 3 days until her prednisone kicks in. She relates that Dr. Pennington has put her in the hospital for this before. I have advised that I can check some baseline lab work and talked to them but the ultimate decision will be up to the hospitalist physician with regard to staying in the hospital. 2345: With return of laboratory, care has been discussed with Dr. Pennington. He is agreeable to reassessing this patient in the morning to see if her pain is to the point where she would be able to go home. The patient does not have a ride home nor does she believe she can take care of herself at home this time with her inability to ambulate. Vital Signs Temperature 99.6 F 03/12/17 22:47 Pulse Rate 83 03/12/17 22:47 Respiratory Rate 20 03/12/17 22:47 Blood Pressure 187/100 03/12/17 22:47 O2 Sat by Pulse Oximetry 88 03/12/17 22:47 Temperature 99.6 F 03/12/17 22:47 Pulse Rate 83 03/12/17 22:47 Respiratory Rate 20 03/12/17 22:47 Blood Pressure 187/100 03/12/17 22:47 O2 Sat by Pulse Oximetry 88 03/12/17 22:47 Oxygen Delivery Oxygen Delivery Room Air Medical Decision Making - Lab Data Lab results reviewed: Yes I reviewed the patient's lab results. Result diagrams: 03/12/17 23:15 03/12/17 23:15 Lab Results 03/12/17 03/12/17 Range/Units 23:15 23:15 WBC 9.7 (4.3-11.1) K/mcL RBC 4.17 (3.82-4.97) M/mcL Hgb 11.1 L (11.5-15.4) g/dL Hct 34.9 L (35.3-44.9) % MCV 83.7 (83.0-100.0) fL MCH 26.6 L (28.0-33.3) pg MCHC 31.8 (31.6-35.5) g/dL RDW 14.4 (11.5-14.5) % Plt Count 117 L (140-400) K/mcL MPV 10.9 (9.4-12.4) fL Immature Gran % 0.3 (0-4) % Seg Neutrophils % 76.6 % Lymphocytes % 13.4 % Monocytes % 9.2 % Eosinophils % 0.3 % Basophils % 0.2 % Neutrophils # 7.4 (1.6-8.9) K/mcL Lymphocytes # 1.3 (0.6-4.6) K/mcL Monocytes # 0.9 (0.0-1.3) K/mcL Eosinophils # 0.0 (0.0-0.6) K/mcL Basophils # 0.0 (0.0-0.2) K/mcL Sodium 141 (136-145) mEq/L Potassium 3.0 L (3.5-4.5) mEq/L Chloride 99 (98-109) mEq/L Carbon Dioxide 28 (19-29) mEq/L BUN 16 (7-20) mg/dL Creatinine 1.12 H (0.57-1.11) mg/dL Est GFR ( Amer) 57 L (> 60) Est GFR (Non-Af Amer) 47 L (> 60) BUN/Creatinine Ratio 14 (6-26) Glucose 154 H (70-99) mg/dL Calculated Osmolality 296 (280-300) Uric Acid 7.1 H (2.6-6.0) mg/dL Calcium 9.0 (8.6-10.8) mg/dL
[2017-03-12] MEDS ORDERED: predniSONE 20 MG TABLET PO ONE (23:04)
[2017-03-12] MEDS ORDERED: *HR* HYDROcodone/Acet 5/325 mg TABLET PO ONE (23:04)
[2017-03-12 23:20] LABS: Basophils % 0.2 %; Eosinophils % 0.3 %; Hematocrit 34.9 % (35.3-44.9); Hemoglobin 11.1 g/dL (11.5-15.4); Immature Granulocytes % 0.3 % (0-4); Lymphocytes # 1.3 K/mcL (0.6-4.6); Lymphocytes % 13.4 %; Mean Corpuscular HGB Conc 31.8 g/dL (31.6-35.5); Mean Corpuscular Hemoglobin 26.6 pg (28.0-33.3); Mean Corpuscular Volume 83.7 fL (83.0-100.0); Mean Platelet Volume 10.9 fL (9.4-12.4); Monocytes # 0.9 K/mcL (0.0-1.3); Monocytes % 9.2 %; Neutrophils # 7.4 K/mcL (1.6-8.9); Platelet Count 117 K/mcL (140-400); Red Blood Count 4.17 M/mcL (3.82-4.97); Red Cell Distribution Width 14.4 % (11.5-14.5); Segmented Neutrophils % 76.6 %
[2017-03-12 23:38] LABS: Uric Acid 7.1 mg/dL (2.6-6.0)
[2017-03-13] MEDS ORDERED: cloNIDine HCl 0.1 MG TABLET PO ONE (00:17)
[2017-03-13] MEDS ORDERED: *HR* HYDROcodone/Acet 5/325 mg TABLET PO PRN (01:18)
[2017-03-13] MEDS ORDERED: Naloxone 0.4 MG/ML INJ IVP PRN (01:18)
[2017-03-13] MEDS ORDERED: Ondansetron 4 MG/2 ML VIAL IVP PRN (01:18)
[2017-03-13] MEDS ORDERED: predniSONE 20 MG TABLET PO SCH (08:00)
--- NOTE | 2017-03-13 12:38 | Internal Med History&Physical ---
Date of Encounter: 03/13/17 Time of Encounter: 12:10 Assessment and Plan (1) Gout Current visit: No Status: Acute She has been started back on allopurinol and ordered prednisone. I will stop Naprosyn because of azotemia. Qualifiers: Gout site: unspecified site Gout etiology: unspecified cause Chronicity: chronic Presence of tophus: without tophus Qualified Code(s): M1A.9XX0 - Chronic gout, unspecified, without tophus (tophi) (2) Hypokalemia Current visit: No Status: Acute Will increase potassium to 10 mEq 2 times a day (3) Anemia Current visit: No Status: Chronic We will check anemia testing in a.m. Qualifiers: Anemia type: unspecified type Qualified Code(s): D64.9 - Anemia, unspecified Internal Medicine - H&P: HPI Chief complaint: Foot pain Admitted From: Home Plans for Post Hospital Care: Home History of present illness: Ms. Thorpe is a 77 year old female who came to emergency room stating she had worsening pain in her feet over the past 3-4 days. She was evaluated in emergency room and found to have elevated uric acid level at 7.1. She admits she has not been taking allopurinol on a regular basis since she was discharged from [facility] September 2016. She was admitted to [facility] floor for ongoing care needs. Her musculoskeletal history is pertinent for gout, DJD, and osteoporosis. She states her foot pain has improved but is not back to baseline. Past Med Surg Social Fam HX - Past Medical History Medical history: arthritis, asthma, cancer, CHF, COPD, hyperlipidemia, hypertension, kidney stones, malignancy, osteoporosis, peripheral artery disease , renal disease, venous stasis, other Psychiatric history: anxiety, depression, other - Past Surgical History Surgical History: appendectomy, cancer surgery, cholecystectomy, knee replacement, other - Social History Smoking Status: Never smoker Smokeless Tobacco Status: No Alcohol use: none Drug use: none - Family History Mother Adopted: No Family Member Ethnicity: Non- Living Status: Hx Family Cardiac Disorders: Yes (Open heart surgery, valve problem.) Hx Family Respiratory Disorders: No Hx Family Cancer: No Hx Family GI Disorders: No Hx Family Endocrine Disorder: No Hx Family Neuromuscular Disorders: No Hx Family Neurologic Disorders: No Hx Family HEENT Disorders: No Hx Family Autoimmune Disorders: No Internal Medicine - H&P: Meds Aspirin [Adult Low Dose Aspirin EC] 162 mg PO DAILY 06/07/15 [History] Labetalol [Trandate] 300 mg PO BID 06/07/15 [History] Sertraline [Zoloft] 100 mg PO HS 06/07/15 [History] Ipratropium/Albuterol Neb [Duoneb] 3 ml IH [id number] PRN #0 inhsol 07/28/16 [Rx] Cyanocobalamin (B-12) [Vitamin B12] 1,000 mcg PO DAILY #30 tablet 10/19/16 [Rx] cloNIDine HCl [CloNIDine HCl] 0.3 mg PO BID #180 tablet 10/19/16 [Rx] Oxygen 2 l NS AD 10/30/16 [History] Potassium Chloride [K-Tab ER] 10 meq PO DAILY 10/30/16 [History] Triamterene/HCTZ 37.5/25mg [Dyazide] 1 each PO DAILY 10/30/16 [History] hydrALAZINE [HydrALAZINE] 25 mg PO BID 10/30/16 [History] Allopurinol [Zyloprim 100 MG] 200 mg PO DAILY PRN 01/24/17 [History] methylPREDNISolone [Medrol] 03/12/17 [History] Allergies amlodipine [From Norvasc] Allergy (Verified 01/24/17 19:17) Hives Amoxicillin Allergy (Verified 01/24/17 19:17) Hives atorvastatin [From Lipitor] Allergy (Verified 01/24/17 19:17) Hives cefdinir [From Omnicef] Allergy (Verified 01/24/17 19:17) Hives cefuroxime [From Ceftin] Allergy (Verified 01/24/17 19:17) Hives cephalexin [From Keflex] Allergy (Verified 01/24/17 19:17) Hives ciprofloxacin [From Cipro] Allergy (Verified 01/24/17 19:17) Hives doxycycline Allergy (Verified 01/24/17 19:17) Hives fluoxetine [From Prozac] Allergy (Verified 01/24/17 19:17) Hives iodine Allergy (Verified 01/24/17 19:17) Hives levofloxacin [From Levaquin] Allergy (Verified 01/24/17 19:17) Hives metoprolol Allergy (Verified 01/24/17 19:17) Hives nifedipine Allergy (Verified 01/24/17 19:17) Hives Paroxetine [From Paxil] Allergy (Verified 01/24/17 19:17) Hives Prazosin Allergy (Verified 01/24/17 19:17) Hives Saxagliptin [From Onglyza] Allergy (Verified 01/24/17 19:17) Hives simvastatin [From Zocor] Allergy (Verified 01/24/17 19:17) Hives sitagliptin [From Januvia] Allergy (Verified 01/24/17 19:17) Hives sulfamethoxazole [From Bactrim] Allergy (Verified 01/24/17 19:17) Hives trimethoprim [From Bactrim] Allergy (Verified 01/24/17 19:17) Hives Oxycodone Adverse Reaction (Verified 01/24/17 19:17) Headache All Systems PM: A 10-system review of systems was performed and is negative for pertinent findings except as documented above in the HPI. Review of systems: Review of systems from her September 2016 hospitalization were reviewed and revised as below. Gen.: Her weight has been stable since the May 2015 hospitalization at approximately 82 kg Cardiovascular: She has history of hypertension and PVCs. She has not seen a geographic information systems engineer since approximately 2012 She has no known [place] heart failure or pulmonary embolus. She states she was diagnosed with a DVT [?] a few weeks ago but was felt to be poor candidate for OAC. Respiratory: She smoked from age [age] up to one half pack per day. She wears oxygen at bedtime. She has a diagnosis of asthma and bronchitis. She has been diagnosed with sleep apnea but does not presently use CPAP/BiPAP. GI: She had a cholecystectomy 2000 but denies disorders of her liver or exocrine pancreas : She has had kidney stones in the past. She had left renal cancer with left nephrectomy performed in 1995. This apparently was curative. She has CKD stage 3-4 and follows with a [employer] precision optics technician Neurologic: She denies large distribution strokes or seizures. Endocrine: She was diagnosed with DM 2 approximately 2003. 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 She now uses a motorized wheelchair. She denies known thyroid disease. Hematology/oncology: She had left renal cancer as per above but denies other internal malignancies or anemia Musculoskeletal: As per history of present illness - Constitutional Vitals: Temp Pulse Resp BP Pulse Ox 98.7 F 68 16 153/80 91 03/13/17 07:29 03/13/17 07:29 03/13/17 07:29 03/13/17 07:29 03/13/17 01:32 Exam: Gen.: She is a well-developed well-nourished female lying in bed who appears in no acute distress HEENT: Head is atraumatic and normocephalic. Eyes: EOMI. There is no scleral icterus. Mouth: Mucosa is moist. Neck: Supple and nontender. There is no thyromegaly or adenopathy noted. Heart: Regular without murmurs gallops or ectopics Lungs: No wheezes or crackles are heard. Abdomen: She has well-healed right upper quadrant oblique and longitudinal midline scars. She has an umbilical hernia that is easy reducible. No masses or guarding noted. Extremities: She does not have inflammation of her MTP joints. There is no pain on passive range of motion of her forefoot. Dorsalis pedis and posttibial pulses are 1-2 over 2 bilaterally. She has DJD changes of her hands. Neurologic: Mental status: She is talkative and a good historian. Cranial nerves: Smile is symmetric. Forehead wrinkles bilaterally. Tongue protrudes midline. EOMI. Motor: There is no pronator drift. Cerebellar: Finger to nose intact bilaterally. Skin: Warm and dry Internal Med - H&P Results - Labs CBC & Chem 7: 03/12/17 23:15 03/12/17 23:15
[2017-03-13] MEDS: cloNIDine HCl 0.1 MG TABLET PO SCH ×2 (15:57→21:36)
[2017-03-13] MEDS: hydrALAZINE 25 MG TABLET PO SCH ×2 (15:57→21:36)
[2017-03-13] MEDS: predniSONE 20 MG TABLET PO SCH (15:58)
[2017-03-14 05:09] LABS: Basophils % 0.2 %; Hematocrit 35.5 % (35.3-44.9); Hemoglobin 11.2 g/dL (11.5-15.4); Immature Granulocytes % 0.9 % (0-4); Lymphocytes % 7.8 %; Mean Corpuscular HGB Conc 31.5 g/dL (31.6-35.5); Mean Corpuscular Hemoglobin 26.7 pg (28.0-33.3); Mean Corpuscular Volume 84.5 fL (83.0-100.0); Mean Platelet Volume 11.7 fL (9.4-12.4); Monocytes % 7.4 %; Neutrophils # 10.8 K/mcL (1.6-8.9); Platelet Count 144 K/mcL (140-400); Red Cell Distribution Width 14.3 % (11.5-14.5); Segmented Neutrophils % 83.7 %
[2017-03-14 05:24] LABS: Albumin 2.9 g/dL (3.5-5.0); Albumin/Globulin Ratio 0.9 (1.1-2.2); Bilirubin,Total 0.2 mg/dL (0.2-1.2); Calcium 8.8 mg/dL (8.6-10.8); Globulin 3.3 g/dL (2.4-3.5); Magnesium 1.9 mg/dL (1.6-2.6); Potassium 3.8 mEq/L (3.5-4.5); Total Protein 6.2 g/dL (6.0-8.3)
[2017-03-14] MEDS: hydrALAZINE 25 MG TABLET PO SCH (09:29)
[2017-03-14] MEDS: predniSONE 20 MG TABLET PO SCH (09:30)
[2017-03-14] MEDS: cloNIDine HCl 0.1 MG TABLET PO SCH (09:30)
--- NOTE | 2017-03-14 09:57 | Discharge Summary ---
Date of Encounter: 03/14/17 Time of Encounter: 09:40 - Discharge Diagnosis (1) Gout Priority: Primary Status: Acute Qualifiers: Gout site: unspecified site Gout etiology: unspecified cause Chronicity: chronic Presence of tophus: without tophus Qualified Code(s): M1A.9XX0 - Chronic gout, unspecified, without tophus (tophi) (2) Hypokalemia Priority: Secondary Status: Resolved (3) Anemia Priority: Secondary Status: Chronic Qualifiers: Anemia type: unspecified type Qualified Code(s): D64.9 - Anemia, unspecified - Discharge Medications Prescriptions: predniSONE [PredniSONE] 10 mg PO BIDWM #6 tablet Home Medications: Aspirin [Adult Low Dose Aspirin EC] 162 mg PO DAILY 06/07/15 [History] Labetalol [Trandate] 300 mg PO BID 06/07/15 [History] Sertraline [Zoloft] 100 mg PO HS 06/07/15 [History] Ipratropium/Albuterol Neb [Duoneb] 3 ml IH [id number] PRN #0 inhsol 07/28/16 [Rx] Cyanocobalamin (B-12) [Vitamin B12] 1,000 mcg PO DAILY #30 tablet 10/19/16 [Rx] cloNIDine HCl [CloNIDine HCl] 0.3 mg PO BID #180 tablet 10/19/16 [Rx] Oxygen 2 l NS AD 10/30/16 [History] Potassium Chloride [K-Tab ER] 10 meq PO DAILY 10/30/16 [History] hydrALAZINE [HydrALAZINE] 25 mg PO BID 10/30/16 [History] Allopurinol [Zyloprim 100 MG] 200 mg PO DAILY PRN 01/24/17 [History] methylPREDNISolone [Medrol] 03/12/17 [History] predniSONE [PredniSONE] 10 mg PO BIDWM #6 tablet 03/14/17 [Rx] Allergies/Adverse Reactions: Allergies amlodipine [From Norvasc] Allergy (Verified 01/24/17 19:17) Hives Amoxicillin Allergy (Verified 01/24/17 19:17) Hives atorvastatin [From Lipitor] Allergy (Verified 01/24/17 19:17) Hives cefdinir [From Omnicef] Allergy (Verified 01/24/17 19:17) Hives cefuroxime [From Ceftin] Allergy (Verified 01/24/17 19:17) Hives cephalexin [From Keflex] Allergy (Verified 01/24/17 19:17) Hives ciprofloxacin [From Cipro] Allergy (Verified 01/24/17 19:17) Hives doxycycline Allergy (Verified 01/24/17 19:17) Hives fluoxetine [From Prozac] Allergy (Verified 01/24/17 19:17) Hives iodine Allergy (Verified 01/24/17 19:17) Hives levofloxacin [From Levaquin] Allergy (Verified 01/24/17 19:17) Hives metoprolol Allergy (Verified 01/24/17 19:17) Hives nifedipine Allergy (Verified 01/24/17 19:17) Hives Paroxetine [From Paxil] Allergy (Verified 01/24/17 19:17) Hives Prazosin Allergy (Verified 01/24/17 19:17) Hives Saxagliptin [From Onglyza] Allergy (Verified 01/24/17 19:17) Hives simvastatin [From Zocor] Allergy (Verified 01/24/17 19:17) Hives sitagliptin [From Januvia] Allergy (Verified 01/24/17 19:17) Hives sulfamethoxazole [From Bactrim] Allergy (Verified 01/24/17 19:17) Hives trimethoprim [From Bactrim] Allergy (Verified 01/24/17 19:17) Hives Oxycodone Adverse Reaction (Verified 01/24/17 19:17) Headache Date of admission: 03/13/17 00:38 Primary care physician: Alejandra Osman CNP - Patient Status Disposition: Home, Self-Care Condition: Fair Functional capacity at discharge: uses cane/walker Overall status at discharge: patient is progressing back to baseline - Discharge Instructions Follow Up With: Alejandra Osman CNP [Advanced Practice Nurse] - 1 week - Diet and Activity Activity: resume usual activities as tolerated Diet: advance to your usual diet Hospital course: Ms. Thorpe is a 77 year old female who came to emergency room stating she had worsening pain in her feet over the past 3-4 days. She was evaluated in emergency room and found to have elevated uric acid level at 7.1. She admits she has not been taking allopurinol on a regular basis since she was discharged from [facility] September 2016. She was admitted to [facility] for ongoing care needs. Initial orders were written by the emergency room physician. I saw her on March 13 and performed a history and physical. She was given prednisone and started back on allopurinol. She was also ordered Naprosyn through emergency room but I discontinued this because of her azotemia. She had significant improvement in her foot pain by the following day she was able to relate satisfactory to go home. She will continue with allopurinol 200 mg daily at home. She will continue prednisone 10 mg twice a day for 3 days and remain off NSAIDs. Supplemental potassium was given and hypokalemia resolved. She will continue KCl 10 mEq daily. She is uncertain if she was taking Dyazide at home but this will be discontinued. Her PCP can monitor chemistries. Anemia testing was ordered with results pending at time of discharge. She will be discharged home and follow with her PCP Alejandra Osman CNP within 1 week. - Time Spent with Patient Total time spent providing and/or coordinating discharge services: - Constitutional Vitals: Temp Pulse Resp BP Pulse Ox 98.4 F 61 18 105/69 96 03/14/17 06:37 03/14/17 06:37 03/14/17 06:37 03/14/17 06:37 03/14/17 06:37
[2017-03-14 13:08] VITALS: BP 189/62
[2017-03-14 13:08] LABS: Folate 12.2 ng/mL (7.0-31.4)
== END 2017-03-14 18:47 | disposition home or self-care (01) ==
LOC: INPPIK 22:46 → EMEROOPIK 22:46 → INPPIK 03-13 01:21
PROVIDERS: ADMIT Internal Medicine; ATTEND Internal Medicine

== ENCOUNTER 2017-08-23 12:52 | Inpatient (IN) ==
[2017-08-23] MEDS ORDERED: Sennosides/Docusate Sodium TABLET PO PRN (19:17)
[2017-08-23] MEDS ORDERED: ALPRAZolam 0.5 MG TABLET PO PRN (19:17)
[2017-08-23] MEDS ORDERED: NON-FORMULARY MEDICATION 1 EACH EACH (Oxygen [Oxygen] 2 L) NS SCH (19:30)
[2017-08-23] MEDS ORDERED: Ipratropium/Albuterol Neb 3 ML ONE (19:59)
[2017-08-23] MEDS: Ipratropium/Albuterol Neb 3 ML IH PRN (21:07)
[2017-08-23] MEDS: cloNIDine HCl 0.1 MG TABLET PO SCH (22:31)
[2017-08-23] MEDS: hydrALAZINE 25 MG TABLET PO SCH (22:32)
[2017-08-23] MEDS: Aspirin 81 MG TAB.CHEW PO SCH (22:36)
[2017-08-24 06:04] LABS: Eosinophils % 0.5 %; Hematocrit 29.6 % (35.3-44.9); Hemoglobin 8.9 g/dL (11.5-15.4); Immature Granulocytes % 2.1 % (0-4); Lymphocytes % 14.3 %; Mean Corpuscular HGB Conc 30.1 g/dL (31.6-35.5); Mean Corpuscular Hemoglobin 26.2 pg (28.0-33.3); Mean Corpuscular Volume 87.1 fL (83.0-100.0); Mean Platelet Volume 10.5 fL (9.4-12.4); Monocytes % 14.7 %; Neutrophils # 4.6 K/mcL (1.6-8.9); Platelet Count 157 K/mcL (140-400); Red Cell Distribution Width 15.4 % (11.5-14.5); Segmented Neutrophils % 68.4 %
[2017-08-24 06:19] LABS: INR 1.1; Prothrombin Time 12.1 Seconds (9.4-12.1)
[2017-08-24 06:21] LABS: Activated Partial Thrombo Time 24.1 Seconds (26.0-36.0)
[2017-08-24] MEDS ORDERED: predniSONE 10 MG TABLET PO SCH (09:00)
[2017-08-24] MEDS: Fluticasone Propionate Nasal 50 MCG/SPRAY BOTTLE NS SCH (09:35)
[2017-08-24] MEDS: Aspirin 81 MG TAB.CHEW PO SCH (09:38)
[2017-08-24] MEDS: Azithromycin 250 MG TABLET PO SCH (09:38)
[2017-08-24] MEDS: cloNIDine HCl 0.1 MG TABLET PO SCH ×2 (09:39→20:00)
[2017-08-24] MEDS: hydrALAZINE 25 MG TABLET PO SCH ×3 (09:40→20:00)
[2017-08-24] MEDS: Ipratropium/Albuterol Neb 3 ML IH PRN ×3 (10:10→21:14)
--- NOTE | 2017-08-24 18:34 | Internal Med History&Physical ---
Date of Encounter: 08/24/17 Time of Encounter: 18:00 Assessment and Plan (1) Acute diastolic congestive heart failure Current visit: No Status: Acute Continue hydralazine and low-dose Lasix. Will add isosorbide and monitor bn peptide and clinical status (2) Hypertension Current visit: No Status: Chronic Continue clonidine, Lasix, hydralazine, and labetalol. Qualifiers: Hypertension type: essential hypertension Qualified Code(s): I10 - Essential (primary) hypertension (3) Anemia Current visit: No Status: Chronic Will order anemia testing in a.m. and hold aspirin for now Qualifiers: Anemia type: unspecified type Qualified Code(s): D64.9 - Anemia, unspecified (4) Type 2 diabetes mellitus Current visit: No Status: Chronic Hemoglobin A1c was 7.8% on 07/29/2017. Will start glimepiride Qualifiers: Diabetes mellitus complication status: with kidney complications Diabetes mellitus complication detail: with chronic kidney disease Diabetes mellitus ferry terminal supervisor insulin use: unspecified ferry terminal supervisor insulin use status Chronic kidney disease stage: stage 3 (moderate) Qualified Code(s): E11.22 - Type 2 diabetes mellitus with diabetic chronic kidney disease; N18.3 - Chronic kidney disease, stage 3 (moderate); N18.3 - Chronic kidney disease, stage 3 (moderate) (5) Gout Current visit: No Status: Acute Continue allopurinol and check uric acid level in a.m. Qualifiers: Gout site: unspecified site Gout etiology: unspecified cause Chronicity: chronic Presence of tophus: without tophus Qualified Code(s): M1A.9XX0 - Chronic gout, unspecified, without tophus (tophi) Internal Medicine - H&P: HPI Chief complaint: Dyspnea Admitted From: Hospital to Hospital Transfer Plans for Post Hospital Care: Home History of present illness: Ms. Thorpe is a 77 year old female who was hospitalized at [facility] August 20- after presenting to [facility] with dyspnea. She was transferred to [facility] and diagnosed with diastolic heart failure and acute and chronic respiratory failure. She was stabilized and admitted to [facility] swing bed for ongoing care needs. She was hospitalized at [facility] February 2017 with gout. Her cardiovascular history is significant for hypertension and PVCs. An echocardiogram done during her recent [facility] stay showed LVEF of 60% with concentric LVH. The interventricular septum and posterior wall thickness measurements were elevated at 1.30 centimeters each. There was biatrial enlargement with left atrial measurement recorded at 4.30 cm. There was mild aortic stenosis. There was reported mild LV diastolic dysfunction although the E/A ratio was 1.1. She has no known AR DVT or pulmonary embolus. Past Med Surg Social Fam HX - Past Medical History Medical history: arthritis, asthma, cancer, CHF, COPD, diabetes, hyperlipidemia , hypertension, kidney stones, malignancy, osteoporosis, peripheral artery disease, renal disease, venous stasis Psychiatric history: anxiety, depression - Past Surgical History Surgical History: appendectomy, cancer surgery, cholecystectomy, knee replacement - Social History Smoking Status: Former smoker Smokeless Tobacco Status: No Alcohol use: none Drug use: none - Family History Mother Adopted: No Family Member Ethnicity: Non- Living Status: Hx Family Cardiac Disorders: Yes (Open heart surgery, valve problem.) Hx Family Respiratory Disorders: No Hx Family Cancer: No Hx Family GI Disorders: No Hx Family Endocrine Disorder: No Hx Family Neuromuscular Disorders: No Hx Family Neurologic Disorders: No Hx Family HEENT Disorders: No Hx Family Autoimmune Disorders: No Internal Medicine - H&P: Meds Labetalol [Trandate] 200 mg PO BID 06/07/15 [History] cloNIDine HCl [CloNIDine HCl] 0.3 mg PO BID #180 tablet 10/19/16 [Rx] Oxygen 2 l NS AD 10/30/16 [History] Allopurinol [Zyloprim 100 MG] 100 mg PO DAILY 01/24/17 [History] Albuterol Sulfate [Ventolin Hfa] 2 puff IH Q6H PRN 07/25/17 [History] Aspirin 81 mg PO BID 07/25/17 [History] Fluticasone Propionate Nasal [Flonase] 2 spr NS QAM 07/25/17 [History] Potassium Chloride [K-Tab ER] 10 meq PO BID 07/25/17 [History] Sertraline [Zoloft] 100 mg PO HS 07/25/17 [History] ALPRAZolam [Xanax 0.5 MG Tablet] 0.5 mg PO TID PRN 08/20/17 [History] Furosemide [Lasix] 40 mg PO DAILY 08/20/17 [History] Azithromycin [Zithromax] 250 mg PO DAILY 2 Days tablet 08/23/17 [Rx] GuaiFENesin/Dextromethorphan [Robitussin/Dm] 10 ml PO Q6HR PRN udc 08/23/17 [Rx ] Hydralazine HCl 100 mg PO TID #90 tablet 08/23/17 [Rx] Ipratropium/Albuterol Neb [Duoneb] 3 ml IH [id number] PRN inhsol 08/23/17 [Rx] Sennosides/Docusate Sodium [Senna Plus] 1 each PO BID PRN tablet 08/23/17 [Rx] predniSONE [PredniSONE] 30 mg PO DAILY #6 tablet 08/23/17 [Rx] Furosemide [Lasix] 20 mg PO DAILY 30 Days tablet 08/26/17 [Rx] 3 Allergy/AdvReac Type Severity Reaction Status Date / Time Amoxicillin Allergy Rash Verified 07/25/17 09:42 atorvastatin [From Lipitor] Allergy See Verified 07/25/17 09:42 Comments cefdinir [From Omnicef] Allergy Vomiting Verified 08/19/17 22:21 cephalexin [From Keflex] Allergy See Verified 07/25/17 09:42 Comments Cortisone Allergy Redness of Verified 08/19/17 22:20 Skin doxycycline Allergy See Verified 07/30/17 07:35 Comments Erythromycin Base Allergy Cramping Verified 08/19/17 22:21 of the Muscles iodine Allergy SHAKING Verified 07/25/17 09:42 levofloxacin [From Levaquin] Allergy LIP Verified 07/25/17 09:42 SWELLING sitagliptin [From Januvia] Allergy Difficulty Verified 07/25/17 09:42 Breathing sulfamethoxazole Allergy Rash Verified 07/25/17 09:42 [From Bactrim] trimethoprim [From Bactrim] Allergy Rash Verified 07/25/17 09:42 amlodipine [From Norvasc] AdvReac SEE COMMENT Verified 07/25/17 09:42 cefuroxime [From Ceftin] AdvReac MUSCLE Verified 07/25/17 09:42 CRAMPS enalaprilat [From Vasotec] AdvReac Cough Verified 08/19/17 22:17 fluoxetine [From Prozac] AdvReac SEE COMMENT Verified 07/25/17 09:42 metoprolol AdvReac Dizziness Verified 07/25/17 09:42 nifedipine AdvReac Headache Verified 07/25/17 09:42 nystatin AdvReac See Verified 08/19/17 22:21 Comments Oxycodone AdvReac Headache Verified 07/20/17 23:21 Paroxetine [From Paxil] AdvReac CHILLS AND Verified 07/25/17 09:42 ITCH Prazosin AdvReac TACHYCARDIA Verified 07/25/17 09:42 Saxagliptin [From Onglyza] AdvReac UNKNOWN Verified 07/25/17 09:42 PER PT sertraline [From Zoloft] AdvReac Hallucinati Verified 07/25/17 02:25 ng simvastatin [From Zocor] AdvReac MUSCLE Verified 07/25/17 09:42 WEAKNESS hydrin Allergy See Uncoded 08/19/17 22:20 Comments All Systems PM: A 10-system review of systems was performed and is negative for pertinent findings except as documented above in the HPI. Review of systems: Review of systems from her September 2016 hospitalization were reviewed and revised as below. Gen.: Her weight has increased since the May 2015 hospitalization from 82 kg to 86.6 kg now Cardiovascular: As per history of present illness Respiratory: She smoked from age [age] up to one half pack per day. She wears oxygen at bedtime and PRN during the daytime. She has a diagnosis of asthma and bronchitis. She has been diagnosed with sleep apnea but does not presently use CPAP/BiPAP. GI: She had a cholecystectomy 2000 but denies disorders of her liver or exocrine pancreas : She has had kidney stones in the past. She had left renal cancer with left nephrectomy performed in 1995. This apparently was curative. She has CKD stage 4 and follows with a [place] women nurse Neurologic: She denies large distribution strokes or seizures. Endocrine: She was diagnosed with DM 2 approximately 2003. 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 She now uses a motorized wheelchair. She denies known thyroid disease. Hematology/oncology: She had left renal cancer as per above but denies other internal malignancies or anemia Musculoskeletal: As per history of present illness - Constitutional Vitals: Temp Pulse Resp BP Pulse Ox 98.4 F 77 18 142/58 98 08/24/17 06:36 08/24/17 15:19 08/24/17 16:50 08/24/17 15:19 08/24/17 16:50 Exam: Gen.: She is a well-developed well-nourished female sitting comfortably in a chair at bedside HEENT: Head is atraumatic and normocephalic. Eyes: EOMI. There is no scleral icterus. Mouth: Mucosa is moist. Neck: Supple and nontender. There is no thyromegaly or adenopathy noted. Heart: Irregular. I could not tell if it is regularly or irregularly irregular. No murmurs or gallops are heard. Lungs: No wheezes or crackles are heard. Abdomen: Soft and nontender. No masses or guarding are noted. Extremities: There is no cyanosis or clubbing noted. She has trace edema of the dorsum of the feet and lower anterior shins bilaterally. She has mild DJD changes of her hands. Neurologic: Mental status: She is talkative and a good historian. Cranial nerves: Smile is symmetric. Forehead wrinkles bilaterally. Tongue protrudes midline. EOMI. Motor: There is no pronator drift. Cerebellar: Fair to nose is intact bilaterally. Skin: Warm and dry Internal Med - H&P Results - Labs CBC & Chem 7: 08/24/17 05:15 08/24/17 05:15 Labs: Short CBC 08/24/17 Range/Units 05:15 WBC 6.7 (4.3-11.1) K/mcL Hgb 8.9 L (11.5-15.4) g/dL Hct 29.6 L (35.3-44.9) % Plt Count 157 (140-400) K/mcL Neutrophils # 4.6 (1.6-8.9) K/mcL BMP 08/24/17 05:15 Creatinine 1.33 H
[2017-08-24] MEDS ORDERED: cloNIDine HCl 0.1 MG TABLET PO SCH (19:00)
[2017-08-24] MEDS: Isosorbide MONOnitrate (24 HR) 30 MG TAB.ER.24H PO SCH (19:52)
[2017-08-25] MEDS: Ipratropium/Albuterol Neb 3 ML IH PRN ×3 (04:14→16:24)
[2017-08-25 07:21] LABS: Uric Acid 6.4 mg/dL (2.6-6.0)
[2017-08-25] MEDS: cloNIDine HCl 0.1 MG TABLET PO SCH ×2 (07:45→22:37)
[2017-08-25] MEDS: *HR* Glimepiride 2 MG TABLET PO SCH (07:47)
[2017-08-25] MEDS: hydrALAZINE 25 MG TABLET PO SCH ×3 (09:28→22:38)
[2017-08-25] MEDS: Isosorbide MONOnitrate (24 HR) 30 MG TAB.ER.24H PO SCH ×2 (09:29→12:31)
[2017-08-25] MEDS: Azithromycin 250 MG TABLET PO SCH (09:30)
[2017-08-25] MEDS: Fluticasone Propionate Nasal 50 MCG/SPRAY BOTTLE NS SCH (09:31)
[2017-08-25 10:21] LABS: Folate 12.8 ng/mL (3.0-16.0)
[2017-08-25] MEDS ORDERED: Cyanocobalamin (B-12) 1,000 MCG/ML VIAL IM ONE (10:57)
--- NOTE | 2017-08-25 10:58 | Internal Med Progress Note ---
Date of Encounter: 08/25/17 Time of Encounter: 10:50 - Assessment and plan (1) Acute diastolic congestive heart failure Current Visit: No Status: Acute Assessment and plan: August 25. Continue hydralazine, isosorbide, and low-dose Lasix. Monitor labs as needed. (2) Hypertension Current Visit: No Status: Chronic Assessment and plan: August 25. Continue clonidine, Lasix, hydralazine, and labetalol Qualifiers: Hypertension type: essential hypertension Qualified Code(s): I10 - Essential (primary) hypertension (3) Anemia Current Visit: No Status: Chronic Assessment and plan: August 25. Anemia testing showed iron 47, transferrin saturation 13%, transferrin 252, ferritin 72, B12 160, and folate 12.8. I will start her on ferrous sulfate with vitamin C. She will receive B12 injection today and start oral supplement tomorrow. We will monitor CBC as needed. Qualifiers: Anemia type: unspecified type Qualified Code(s): D64.9 - Anemia, unspecified (4) Type 2 diabetes mellitus Current Visit: No Status: Chronic Assessment and plan: August 25. Hemoglobin A1c was 7.8% on 07/29/2017. She declined glimepiride today. We will monitor Accu-Cheks with SSI. Qualifiers: Diabetes mellitus complication status: with kidney complications Diabetes mellitus complication detail: with chronic kidney disease Diabetes mellitus exterminator termite insulin use: unspecified exterminator termite insulin use status Chronic kidney disease stage: stage 3 (moderate) Qualified Code(s): E11.22 - Type 2 diabetes mellitus with diabetic chronic kidney disease; N18.3 - Chronic kidney disease, stage 3 (moderate); N18.3 - Chronic kidney disease, stage 3 (moderate) (5) Gout Current Visit: No Status: Acute Assessment and plan: August 25. Uric acid level was 6.4. Continue allopurinol Qualifiers: Gout site: unspecified site Gout etiology: unspecified cause Chronicity: chronic Presence of tophus: without tophus Qualified Code(s): M1A.9XX0 - Chronic gout, unspecified, without tophus (tophi) - Subjective Interval history: August 25. She has no new complaints. She was concerned about increasing clonidine to every 8 hours since hydralazine had just been increased 100 mg 3 times a day prior to coming to [facility]. She inquired about why aspirin was held and I explained the reason. She will start dose 81 mg daily tomorrow. - Constitutional Vitals: Temp Pulse Resp BP Pulse Ox 98.4 F 71 20 130/57 95 08/25/17 06:58 08/25/17 09:27 08/25/17 06:58 08/25/17 09:27 08/25/17 09:27 Exam: She is resting comfortably in bed and appears in no acute distress. She had occasional cough during my visit. I reviewed her medications and lab results. Internal Medicine: Result - Labs CBC & Chem 7: 08/24/17 05:15 08/24/17 05:15 - ABG Interpretation ABG results: PT/INR, D-dimer PT 12.1 Seconds (9.4-12.1) 08/24/17 05:15 Consult Discharge Plan - Plan Referrals: Alejandra Osman, ASSEMBLY MACHINE OPERATOR [Primary Care Provider] - 1 week
[2017-08-25] MEDS: Benzonatate 100 MG CAPSULE PO PRN (20:38)
[2017-08-26] MEDS: ALPRAZolam 0.25 MG TABLET PO PRN (00:39)
[2017-08-26] MEDS: Benzonatate 100 MG CAPSULE PO PRN ×2 (06:17→21:36)
[2017-08-26] MEDS: Ascorbic Acid 500 MG TABLET PO SCH (06:17)
[2017-08-26 06:36] LABS: Calcium 8.7 mg/dL (8.6-10.8); Potassium 3.5 mEq/L (3.5-4.5)
[2017-08-26] MEDS: *HR* Glimepiride 2 MG TABLET PO SCH (08:07)
[2017-08-26] MEDS: Azithromycin 250 MG TABLET PO SCH (08:08)
[2017-08-26] MEDS: Aspirin 81 MG TAB.CHEW PO SCH (08:08)
[2017-08-26] MEDS: cloNIDine HCl 0.1 MG TABLET PO SCH ×2 (08:09→21:29)
[2017-08-26] MEDS: Cyanocobalamin (B-12) 1,000 MCG TABLET PO SCH (08:09)
[2017-08-26] MEDS: hydrALAZINE 25 MG TABLET PO SCH ×3 (08:09→21:29)
[2017-08-26] MEDS: Isosorbide MONOnitrate (24 HR) 30 MG TAB.ER.24H PO SCH (08:15)
[2017-08-26] MEDS ORDERED: Furosemide 20 MG TABLET PO SCH (09:00)
[2017-08-26] MEDS: Ipratropium/Albuterol Neb 3 ML IH PRN ×2 (10:29→17:18)
[2017-08-26] MEDS: Fluticasone Propionate Nasal 50 MCG/SPRAY BOTTLE NS SCH (15:21)
[2017-08-27] MEDS: Ascorbic Acid 500 MG TABLET PO SCH (06:35)
[2017-08-27 06:44] LABS: Calcium 8.6 mg/dL (8.6-10.8); Potassium 3.1 mEq/L (3.5-4.5)
[2017-08-27] MEDS: Ipratropium/Albuterol Neb 3 ML IH PRN ×2 (07:25→11:36)
[2017-08-27] MEDS: cloNIDine HCl 0.1 MG TABLET PO SCH ×3 (07:50→19:58)
[2017-08-27] MEDS: *HR* Glimepiride 2 MG TABLET PO SCH ×2 (07:50→11:54)
[2017-08-27] MEDS: Isosorbide MONOnitrate (24 HR) 30 MG TAB.ER.24H PO SCH (07:50)
[2017-08-27] MEDS: Cyanocobalamin (B-12) 1,000 MCG TABLET PO SCH (07:51)
[2017-08-27] MEDS: Azithromycin 250 MG TABLET PO SCH (07:51)
[2017-08-27] MEDS: Aspirin 81 MG TAB.CHEW PO SCH (07:51)
[2017-08-27] MEDS: Fluticasone Propionate Nasal 50 MCG/SPRAY BOTTLE NS SCH (07:53)
[2017-08-27] MEDS: hydrALAZINE 25 MG TABLET PO SCH ×3 (12:06→19:58)
--- NOTE | 2017-08-27 12:39 | Internal Med Progress Note ---
Date of Encounter: 08/27/17 Time of Encounter: 12:25 - Assessment and plan (1) Acute diastolic congestive heart failure Current Visit: No Status: Acute Assessment and plan: August 25. Continue hydralazine, isosorbide, and low-dose Lasix. Monitor labs as needed. August 27. Continue hydralazine and she was agreeable to start low-dose Bumex. (2) Hypertension Current Visit: No Status: Chronic Assessment and plan: August 25. Continue clonidine, Lasix, hydralazine, and labetalol August 27. She is agreeable to increasing clonidine dose. Continue hydralazine and labetalol. Will add low-dose Bumex. Qualifiers: Hypertension type: essential hypertension Qualified Code(s): I10 - Essential (primary) hypertension (3) Anemia Current Visit: No Status: Chronic Assessment and plan: August 25. Anemia testing showed iron 47, transferrin saturation 13%, transferrin 252, ferritin 72, B12 160, and folate 12.8. I will start her on ferrous sulfate with vitamin C. She will receive B12 injection today and start oral supplement tomorrow. We will monitor CBC as needed. Qualifiers: Anemia type: unspecified type Qualified Code(s): D64.9 - Anemia, unspecified (4) Type 2 diabetes mellitus Current Visit: No Status: Chronic Assessment and plan: August 25. Hemoglobin A1c was 7.8% on 07/29/2017. She declined glimepiride today. We will monitor Accu-Cheks with SSI. Qualifiers: Diabetes mellitus complication status: with kidney complications Diabetes mellitus complication detail: with chronic kidney disease Diabetes mellitus prison insulin use: unspecified prison insulin use status Chronic kidney disease stage: stage 3 (moderate) Qualified Code(s): E11.22 - Type 2 diabetes mellitus with diabetic chronic kidney disease; N18.3 - Chronic kidney disease, stage 3 (moderate); N18.3 - Chronic kidney disease, stage 3 (moderate) (5) Gout Current Visit: No Status: Acute Assessment and plan: August 25. Uric acid level was 6.4. Continue allopurinol Qualifiers: Gout site: unspecified site Gout etiology: unspecified cause Chronicity: chronic Presence of tophus: without tophus Qualified Code(s): M1A.9XX0 - Chronic gout, unspecified, without tophus (tophi) - Subjective Interval history: August 25. She has no new complaints. She was concerned about increasing clonidine to every 8 hours since hydralazine had just been increased 100 mg 3 times a day prior to coming to [facility]. She inquired about why aspirin was held and I explained the reason. She will start dose 81 mg daily tomorrow. August 27. She has no specific complaints. She states she feels that her abdomen is "full of fluid". She saw the marketing researcher this morning who left her with the impression that she still has significant heart failure. She declined increasing dose of clonidine after was ordered last visit. She also reported side effects with Imdur of tachycardia and worsening dyspnea and does not want to take it. - Constitutional Vitals: Temp Pulse Resp BP Pulse Ox 98.4 F 87 16 192/83 97 08/27/17 07:00 08/27/17 07:00 08/27/17 11:42 08/27/17 07:00 08/27/17 11:42 Exam: She is sitting on the side of the bed appears in minimal dyspnea. Her legs show 1-2+ edema on the right and 1+ on the left. Her lungs show scattered rhonchi without inspiratory crackles. I reviewed her medications and lab results. Internal Medicine: Result - Labs CBC & Chem 7: 08/24/17 05:15 08/27/17 05:10 Labs: BMP 08/27/17 05:10 Sodium 145 Potassium 3.1 L Chloride 102 Carbon Dioxide 32 H BUN 25 H Creatinine 1.17 H Glucose 146 H Calcium 8.6 - ABG Interpretation ABG results: PT/INR, D-dimer PT 12.1 Seconds (9.4-12.1) 08/24/17 05:15 Consult Discharge Plan - Plan Referrals: Alejandra Osman, AMBULETTE DRIVER [Primary Care Provider] - 1 week
[2017-08-27] MEDS: Bumetanide 1 MG TABLET PO SCH (14:56)
[2017-08-27] MEDS: ALPRAZolam 0.25 MG TABLET PO PRN (14:57)
[2017-08-28] MEDS: cloNIDine HCl 0.1 MG TABLET PO SCH ×3 (05:51→20:25)
[2017-08-28] MEDS: Ascorbic Acid 500 MG TABLET PO SCH (05:51)
[2017-08-28] MEDS: Aspirin 81 MG TAB.CHEW PO SCH (07:43)
[2017-08-28] MEDS: Azithromycin 250 MG TABLET PO SCH (07:43)
[2017-08-28] MEDS: Cyanocobalamin (B-12) 1,000 MCG TABLET PO SCH (07:44)
[2017-08-28] MEDS: Bumetanide 1 MG TABLET PO SCH (07:44)
[2017-08-28] MEDS: Fluticasone Propionate Nasal 50 MCG/SPRAY BOTTLE NS SCH (07:45)
[2017-08-28] MEDS: hydrALAZINE 25 MG TABLET PO SCH ×3 (07:45→20:24)
[2017-08-28] MEDS: *HR* Glimepiride 2 MG TABLET PO SCH (07:45)
[2017-08-28] MEDS: Isosorbide MONOnitrate (24 HR) 30 MG TAB.ER.24H PO SCH (07:45)
[2017-08-29] MEDS: cloNIDine HCl 0.1 MG TABLET PO SCH ×3 (05:20→18:41)
[2017-08-29] MEDS: Ascorbic Acid 500 MG TABLET PO SCH (05:21)
[2017-08-29 06:10] LABS: Basophils % 0.2 %; Eosinophils # 0.1 K/mcL (0.0-0.6); Eosinophils % 1.2 %; Hematocrit 29.5 % (35.3-44.9); Hemoglobin 8.9 g/dL (11.5-15.4); Immature Granulocytes % 1.7 % (0-4); Lymphocytes # 1.5 K/mcL (0.6-4.6); Mean Corpuscular HGB Conc 30.2 g/dL (31.6-35.5); Mean Corpuscular Hemoglobin 26.3 pg (28.0-33.3); Mean Corpuscular Volume 87.3 fL (83.0-100.0); Mean Platelet Volume 11.4 fL (9.4-12.4); Monocytes # 0.9 K/mcL (0.0-1.3); Monocytes % 10.6 %; Platelet Count 107 K/mcL (140-400); Red Blood Count 3.38 M/mcL (3.82-4.97); Red Cell Distribution Width 15.9 % (11.5-14.5); Segmented Neutrophils % 69.3 %
[2017-08-29 06:28] LABS: Calcium 8.8 mg/dL (8.6-10.8); Potassium 3.4 mEq/L (3.5-4.5)
[2017-08-29] MEDS: hydrALAZINE 25 MG TABLET PO SCH ×3 (10:29→19:46)
[2017-08-29] MEDS: Azithromycin 250 MG TABLET PO SCH (10:29)
[2017-08-29] MEDS: Isosorbide MONOnitrate (24 HR) 30 MG TAB.ER.24H PO SCH (10:30)
[2017-08-29] MEDS: Cyanocobalamin (B-12) 1,000 MCG TABLET PO SCH (10:30)
[2017-08-29] MEDS: Aspirin 81 MG TAB.CHEW PO SCH (10:30)
[2017-08-29] MEDS: Bumetanide 1 MG TABLET PO SCH (10:30)
[2017-08-29] MEDS: Benzonatate 100 MG CAPSULE PO PRN (10:32)
[2017-08-29] MEDS: *HR* Glimepiride 2 MG TABLET PO SCH (10:35)
[2017-08-29] MEDS: Fluticasone Propionate Nasal 50 MCG/SPRAY BOTTLE NS SCH (10:37)
[2017-08-29] MEDS: ALPRAZolam 0.25 MG TABLET PO PRN (20:05)
[2017-08-29] MEDS ORDERED: Albuterol 2.5 MG/3 ML NEBULIZER ONE (22:05)
[2017-08-29] MEDS ORDERED: Budesonide Neb 0.5 MG/2 ML IH ONE (22:07)
[2017-08-29] MEDS: Albuterol 2.5 MG/3 ML NEBULIZER IH SCH (22:30)
[2017-08-29] MEDS: Budesonide Neb 0.5 MG/2 ML IH SCH (22:31)
[2017-08-30] MEDS: Albuterol 2.5 MG/3 ML NEBULIZER IH SCH ×4 (04:11→21:02)
[2017-08-30] MEDS: cloNIDine HCl 0.1 MG TABLET PO SCH ×3 (04:55→18:01)
[2017-08-30] MEDS: Ascorbic Acid 500 MG TABLET PO SCH (04:55)
[2017-08-30] MEDS: Aspirin 81 MG TAB.CHEW PO SCH (08:51)
[2017-08-30] MEDS: *HR* Glimepiride 2 MG TABLET PO SCH (08:52)
[2017-08-30] MEDS: Bumetanide 1 MG TABLET PO SCH (08:53)
[2017-08-30] MEDS: hydrALAZINE 25 MG TABLET PO SCH ×3 (08:54→21:17)
[2017-08-30] MEDS: Fluticasone Propionate Nasal 50 MCG/SPRAY BOTTLE NS SCH (08:54)
[2017-08-30] MEDS: Azithromycin 250 MG TABLET PO SCH (08:57)
[2017-08-30] MEDS: Cyanocobalamin (B-12) 1,000 MCG TABLET PO SCH (08:57)
[2017-08-30] MEDS: Isosorbide MONOnitrate (24 HR) 30 MG TAB.ER.24H PO SCH (09:01)
[2017-08-30] MEDS: Budesonide Neb 0.5 MG/2 ML IH SCH (10:26)
--- NOTE | 2017-08-30 10:52 | Internal Med Progress Note ---
Date of Encounter: 08/30/17 Time of Encounter: 10:40 - Assessment and plan (1) Acute diastolic congestive heart failure Current Visit: No Status: Acute Assessment and plan: August 25. Continue hydralazine, isosorbide, and low-dose Lasix. Monitor labs as needed. August 27. Continue hydralazine and she was agreeable to start low-dose Bumex. August 30. Continue hydralazine and Bumex (2) Hypertension Current Visit: No Status: Chronic Assessment and plan: August 25. Continue clonidine, Lasix, hydralazine, and labetalol August 27. She is agreeable to increasing clonidine dose. Continue hydralazine and labetalol. Will add low-dose Bumex. August 30. Clonidine dose has been further increased to 0.4 mg every 8 hours. Continue hydralazine, Bumex, and labetalol Qualifiers: Hypertension type: essential hypertension Qualified Code(s): I10 - Essential (primary) hypertension (3) Anemia Current Visit: No Status: Chronic Assessment and plan: August 25. Anemia testing showed iron 47, transferrin saturation 13%, transferrin 252, ferritin 72, B12 160, and folate 12.8. I will start her on ferrous sulfate with vitamin C. She will receive B12 injection today and start oral supplement tomorrow. We will monitor CBC as needed. August 30. Hemoglobin stable at 8.9 yesterday. Qualifiers: Anemia type: unspecified type Qualified Code(s): D64.9 - Anemia, unspecified (4) Type 2 diabetes mellitus Current Visit: No Status: Chronic Assessment and plan: August 25. Hemoglobin A1c was 7.8% on 07/29/2017. She declined glimepiride today. We will monitor Accu-Cheks with SSI. August 30. Continue glimepiride and Accu-Cheks with SSI Qualifiers: Diabetes mellitus complication status: with kidney complications Diabetes mellitus complication detail: with chronic kidney disease Diabetes mellitus pulmonologist insulin use: unspecified pulmonologist insulin use status Chronic kidney disease stage: stage 3 (moderate) Qualified Code(s): E11.22 - Type 2 diabetes mellitus with diabetic chronic kidney disease; N18.3 - Chronic kidney disease, stage 3 (moderate); N18.3 - Chronic kidney disease, stage 3 (moderate) (5) Gout Current Visit: No Status: Acute Assessment and plan: August 25. Uric acid level was 6.4. Continue allopurinol Qualifiers: Gout site: unspecified site Gout etiology: unspecified cause Chronicity: chronic Presence of tophus: without tophus Qualified Code(s): M1A.9XX0 - Chronic gout, unspecified, without tophus (tophi) - Subjective Interval history: August 25. She has no new complaints. She was concerned about increasing clonidine to every 8 hours since hydralazine had just been increased 100 mg 3 times a day prior to coming to [facility]. She inquired about why aspirin was held and I explained the reason. She will start dose 81 mg daily tomorrow. August 27. She has no specific complaints. She states she feels that her abdomen is "full of fluid". She saw the nanny babysitter this morning who left her with the impression that she still has significant heart failure. She declined increasing dose of clonidine after was ordered last visit. She also reported side effects with Imdur of tachycardia and worsening dyspnea and does not want to take it. August 30. She reports increased dyspnea at this time which started earlier this morning. She does not report chest pain. - Constitutional Vitals: Temp Pulse Resp BP Pulse Ox 98.3 F 63 16 125/85 99 08/30/17 04:59 08/30/17 04:59 08/30/17 04:59 08/30/17 04:59 08/30/17 05:00 Exam: She is lying in bed and appears slightly dyspneic while talking. A few rhonchi are heard audibly at bedside while she is talking. Reviewed her medications and lab results. Internal Medicine: Result - Labs CBC & Chem 7: 08/29/17 04:28 08/29/17 04:28 - ABG Interpretation ABG results: PT/INR, D-dimer PT 12.1 Seconds (9.4-12.1) 08/24/17 05:15 Consult Discharge Plan - Plan Referrals: Alejandra Osman, ALUMINUM POURER [Primary Care Provider] - 1 week
[2017-08-30] MEDS: Benzonatate 100 MG CAPSULE PO PRN (22:27)
[2017-08-31] MEDS: Albuterol 2.5 MG/3 ML NEBULIZER IH SCH ×4 (03:20→21:34)
[2017-08-31] MEDS: cloNIDine HCl 0.1 MG TABLET PO SCH ×3 (05:02→17:55)
[2017-08-31] MEDS: Ascorbic Acid 500 MG TABLET PO SCH (05:03)
[2017-08-31 05:17] LABS: Basophils % 0.3 %; Eosinophils # 0.1 K/mcL (0.0-0.6); Eosinophils % 0.7 %; Hematocrit 29.1 % (35.3-44.9); Hemoglobin 8.7 g/dL (11.5-15.4); Immature Granulocytes % 1.4 % (0-4); Lymphocytes # 1.2 K/mcL (0.6-4.6); Lymphocytes % 15.9 %; Mean Corpuscular HGB Conc 29.9 g/dL (31.6-35.5); Mean Corpuscular Volume 86.9 fL (83.0-100.0); Mean Platelet Volume 11.7 fL (9.4-12.4); Monocytes # 0.8 K/mcL (0.0-1.3); Monocytes % 11.4 %; Neutrophils # 5.1 K/mcL (1.6-8.9); Platelet Count 103 K/mcL (140-400); Red Blood Count 3.35 M/mcL (3.82-4.97); Red Cell Distribution Width 15.6 % (11.5-14.5); Segmented Neutrophils % 70.3 %
[2017-08-31 05:46] LABS: Calcium 8.9 mg/dL (8.6-10.8); Potassium 3.3 mEq/L (3.5-4.5)
[2017-08-31] MEDS: Budesonide Neb 0.5 MG/2 ML IH SCH (08:54)
[2017-08-31] MEDS: *HR* Glimepiride 2 MG TABLET PO SCH (09:18)
[2017-08-31] MEDS: Bumetanide 1 MG TABLET PO SCH (09:18)
[2017-08-31] MEDS: Aspirin 81 MG TAB.CHEW PO SCH (09:18)
[2017-08-31] MEDS: Isosorbide MONOnitrate (24 HR) 30 MG TAB.ER.24H PO SCH (09:23)
[2017-08-31] MEDS: Fluticasone Propionate Nasal 50 MCG/SPRAY BOTTLE NS SCH (09:23)
[2017-08-31] MEDS: hydrALAZINE 25 MG TABLET PO SCH ×3 (09:24→20:34)
[2017-08-31] MEDS: Cyanocobalamin (B-12) 1,000 MCG TABLET PO SCH (09:24)
[2017-08-31] MEDS: Azithromycin 250 MG TABLET PO SCH (09:24)
[2017-09-01] MEDS: cloNIDine HCl 0.1 MG TABLET PO SCH ×3 (01:30→17:40)
[2017-09-01] MEDS: Albuterol 2.5 MG/3 ML NEBULIZER IH SCH ×4 (03:24→20:51)
[2017-09-01] MEDS: Ascorbic Acid 500 MG TABLET PO SCH (06:42)
[2017-09-01] MEDS: *HR* Glimepiride 2 MG TABLET PO SCH (08:25)
[2017-09-01] MEDS: Bumetanide 1 MG TABLET PO SCH ×2 (08:26→15:03)
[2017-09-01] MEDS: Aspirin 81 MG TAB.CHEW PO SCH (08:26)
[2017-09-01] MEDS: hydrALAZINE 25 MG TABLET PO SCH ×3 (08:28→20:19)
[2017-09-01] MEDS: Fluticasone Propionate Nasal 50 MCG/SPRAY BOTTLE NS SCH (08:28)
[2017-09-01] MEDS: Cyanocobalamin (B-12) 1,000 MCG TABLET PO SCH (08:29)
[2017-09-01] MEDS: Isosorbide MONOnitrate (24 HR) 30 MG TAB.ER.24H PO SCH ×2 (08:30→12:26)
[2017-09-01] MEDS: Azithromycin 250 MG TABLET PO SCH (08:30)
[2017-09-01] MEDS: Budesonide Neb 0.5 MG/2 ML IH SCH (08:57)
[2017-09-01] MEDS ORDERED: cloNIDine HCl 0.1 MG TABLET PO SCH (11:51)
--- NOTE | 2017-09-01 11:55 | Internal Med Progress Note ---
Date of Encounter: 09/01/17 Time of Encounter: 11:45 - Assessment and plan (1) Acute diastolic congestive heart failure Current Visit: No Status: Acute Assessment and plan: August 25. Continue hydralazine, isosorbide, and low-dose Lasix. Monitor labs as needed. August 27. Continue hydralazine and she was agreeable to start low-dose Bumex. August 30. Continue hydralazine and Bumex September 01. Continue hydralazine, isosorbide, and labetalol. Will increased Bumex (2) Hypertension Current Visit: No Status: Chronic Assessment and plan: August 25. Continue clonidine, Lasix, hydralazine, and labetalol August 27. She is agreeable to increasing clonidine dose. Continue hydralazine and labetalol. Will add low-dose Bumex. August 30. Clonidine dose has been further increased to 0.4 mg every 8 hours. Continue hydralazine, Bumex, and labetalol September 01. Blood pressure still suboptimally controlled. Will increase clonidine to 0.6 mg every 8 hours. We will increase Bumex 1 mg daily. Continue hydralazine and labetalol Qualifiers: Hypertension type: essential hypertension Qualified Code(s): I10 - Essential (primary) hypertension (3) Anemia Current Visit: No Status: Chronic Assessment and plan: August 25. Anemia testing showed iron 47, transferrin saturation 13%, transferrin 252, ferritin 72, B12 160, and folate 12.8. I will start her on ferrous sulfate with vitamin C. She will receive B12 injection today and start oral supplement tomorrow. We will monitor CBC as needed. August 30. Hemoglobin stable at 8.9 yesterday. Qualifiers: Anemia type: unspecified type Qualified Code(s): D64.9 - Anemia, unspecified (4) Type 2 diabetes mellitus Current Visit: No Status: Chronic Assessment and plan: August 25. Hemoglobin A1c was 7.8% on 07/29/2017. She declined glimepiride today. We will monitor Accu-Cheks with SSI. August 30. Continue glimepiride and Accu-Cheks with SSI Qualifiers: Diabetes mellitus complication status: with kidney complications Diabetes mellitus complication detail: with chronic kidney disease Diabetes mellitus laboratory technology teacher insulin use: unspecified laboratory technology teacher insulin use status Chronic kidney disease stage: stage 3 (moderate) Qualified Code(s): E11.22 - Type 2 diabetes mellitus with diabetic chronic kidney disease; N18.3 - Chronic kidney disease, stage 3 (moderate); N18.3 - Chronic kidney disease, stage 3 (moderate) (5) Gout Current Visit: No Status: Acute Assessment and plan: August 25. Uric acid level was 6.4. Continue allopurinol Qualifiers: Gout site: unspecified site Gout etiology: unspecified cause Chronicity: chronic Presence of tophus: without tophus Qualified Code(s): M1A.9XX0 - Chronic gout, unspecified, without tophus (tophi) - Subjective Interval history: August 25. She has no new complaints. She was concerned about increasing clonidine to every 8 hours since hydralazine had just been increased 100 mg 3 times a day prior to coming to [facility]. She inquired about why aspirin was held and I explained the reason. She will start dose 81 mg daily tomorrow. August 27. She has no specific complaints. She states she feels that her abdomen is "full of fluid". She saw the authorizer this morning who left her with the impression that she still has significant heart failure. She declined increasing dose of clonidine after was ordered last visit. She also reported side effects with Imdur of tachycardia and worsening dyspnea and does not want to take it. August 30. She reports increased dyspnea at this time which started earlier this morning. She does not report chest pain. September 01. She has no new complaints. States her cough is more productive. - Constitutional Vitals: Temp Pulse Resp BP Pulse Ox 98.4 F 64 18 178/69 98 09/01/17 06:23 09/01/17 06:23 09/01/17 08:59 09/01/17 06:23 09/01/17 08:59 Exam: She is resting comfortably on the side of the bed. Extremities show 1+ edema bilaterally. Lungs showed no inspiratory crackles or expiratory wheezing. Heart is regular without murmurs gallops or ectopics. I reviewed her medications labs and chest CT report showing resolution of previously seen infiltrates. Internal Medicine: Result - Labs CBC & Chem 7: 08/31/17 04:41 08/31/17 04:41 - ABG Interpretation ABG results: PT/INR, D-dimer PT 12.1 Seconds (9.4-12.1) 08/24/17 05:15 - VTE Documentation of Mechanical Device: Graduated compression elastic hosiery Consult Discharge Plan - Plan Referrals: Alejandra Osman, PERIPHERAL EDP EQUIPMENT OPERATOR [Primary Care Provider] - 1 week
[2017-09-01] MEDS ORDERED: cloNIDine HCl 0.1 MG TABLET PO ONE (12:30)
[2017-09-01] MEDS: Benzonatate 100 MG CAPSULE PO PRN ×2 (15:05→20:19)
[2017-09-01] MEDS: ALPRAZolam 0.25 MG TABLET PO PRN (20:20)
[2017-09-02] MEDS: cloNIDine HCl 0.1 MG TABLET PO SCH ×3 (02:35→21:37)
[2017-09-02] MEDS: Albuterol 2.5 MG/3 ML NEBULIZER IH SCH ×4 (04:30→19:50)
[2017-09-02] MEDS: Ascorbic Acid 500 MG TABLET PO SCH (05:13)
[2017-09-02 07:04] LABS: Basophils % 0.4 %; Eosinophils # 0.1 K/mcL (0.0-0.6); Eosinophils % 0.7 %; Hematocrit 27.4 % (35.3-44.9); Hemoglobin 8.4 g/dL (11.5-15.4); Immature Granulocytes % 0.7 % (0-4); Lymphocytes # 1.4 K/mcL (0.6-4.6); Mean Corpuscular HGB Conc 30.7 g/dL (31.6-35.5); Mean Corpuscular Hemoglobin 26.7 pg (28.0-33.3); Mean Platelet Volume 11.4 fL (9.4-12.4); Monocytes # 0.9 K/mcL (0.0-1.3); Monocytes % 10.5 %; Neutrophils # 5.9 K/mcL (1.6-8.9); Red Blood Count 3.15 M/mcL (3.82-4.97); Red Cell Distribution Width 15.9 % (11.5-14.5); Segmented Neutrophils % 70.7 %
[2017-09-02 07:05] LABS: Platelet Count 94 K/mcL (140-400)
[2017-09-02 07:22] LABS: Calcium 8.8 mg/dL (8.6-10.8); Magnesium 1.5 mg/dL (1.6-2.6); Potassium 3.1 mEq/L (3.5-4.5)
[2017-09-02] MEDS: hydrALAZINE 25 MG TABLET PO SCH ×3 (08:52→21:37)
[2017-09-02] MEDS: Bumetanide 1 MG TABLET PO SCH (08:53)
[2017-09-02] MEDS: Cyanocobalamin (B-12) 1,000 MCG TABLET PO SCH (08:53)
[2017-09-02] MEDS: Isosorbide MONOnitrate (24 HR) 30 MG TAB.ER.24H PO SCH (08:53)
[2017-09-02] MEDS: *HR* Glimepiride 2 MG TABLET PO SCH (08:55)
[2017-09-02] MEDS: Aspirin 81 MG TAB.CHEW PO SCH (08:56)
[2017-09-02] MEDS: Budesonide Neb 0.5 MG/2 ML IH SCH (10:21)
--- NOTE | 2017-09-02 10:39 | Internal Med Progress Note ---
Date of Encounter: 09/02/17 Time of Encounter: 10:20 - Assessment and plan (1) Acute diastolic congestive heart failure Current Visit: No Status: Acute Assessment and plan: August 25. Continue hydralazine, isosorbide, and low-dose Lasix. Monitor labs as needed. August 27. Continue hydralazine and she was agreeable to start low-dose Bumex. August 30. Continue hydralazine and Bumex September 01. Continue hydralazine, isosorbide, and labetalol. Will increase Bumex September 02. Continue hydralazine, isosorbide, labetalol, and Bumex. (2) Hypertension Current Visit: No Status: Chronic Assessment and plan: August 25. Continue clonidine, Lasix, hydralazine, and labetalol August 27. She is agreeable to increasing clonidine dose. Continue hydralazine and labetalol. Will add low-dose Bumex. August 30. Clonidine dose has been further increased to 0.4 mg every 8 hours. Continue hydralazine, Bumex, and labetalol September 01. Blood pressure still suboptimally controlled. Will increase clonidine to 0.6 mg every 8 hours. We will increase Bumex 1 mg daily. Continue hydralazine and labetalol Qualifiers: Hypertension type: essential hypertension Qualified Code(s): I10 - Essential (primary) hypertension (3) Anemia Current Visit: No Status: Chronic Assessment and plan: August 25. Anemia testing showed iron 47, transferrin saturation 13%, transferrin 252, ferritin 72, B12 160, and folate 12.8. I will start her on ferrous sulfate with vitamin C. She will receive B12 injection today and start oral supplement tomorrow. We will monitor CBC as needed. August 30. Hemoglobin stable at 8.9 yesterday. September 02. Hemoglobin decreased to 8.4. We will continue to monitor. Qualifiers: Anemia type: unspecified type Qualified Code(s): D64.9 - Anemia, unspecified (4) Type 2 diabetes mellitus Current Visit: No Status: Chronic Assessment and plan: August 25. Hemoglobin A1c was 7.8% on 07/29/2017. She declined glimepiride today. We will monitor Accu-Cheks with SSI. August 30. Continue glimepiride and Accu-Cheks with SSI Qualifiers: Diabetes mellitus complication status: with kidney complications Diabetes mellitus complication detail: with chronic kidney disease Diabetes mellitus director long term care insulin use: unspecified director long term care insulin use status Chronic kidney disease stage: stage 3 (moderate) Qualified Code(s): E11.22 - Type 2 diabetes mellitus with diabetic chronic kidney disease; N18.3 - Chronic kidney disease, stage 3 (moderate); N18.3 - Chronic kidney disease, stage 3 (moderate) (5) Gout Current Visit: No Status: Acute Assessment and plan: August 25. Uric acid level was 6.4. Continue allopurinol Qualifiers: Gout site: unspecified site Gout etiology: unspecified cause Chronicity: chronic Presence of tophus: without tophus Qualified Code(s): M1A.9XX0 - Chronic gout, unspecified, without tophus (tophi) (6) Hypokalemia Current Visit: Yes Status: Acute Assessment and plan: September 02. Will increase potassium supplementation and monitor labs. (7) Hypomagnesemia Current Visit: Yes Status: Acute Assessment and plan: September 02. Magnesium level was 1.5. We will start magnesium oxide - Subjective Interval history: August 25. She has no new complaints. She was concerned about increasing clonidine to every 8 hours since hydralazine had just been increased 100 mg 3 times a day prior to coming to [facility]. She inquired about why aspirin was held and I explained the reason. She will start dose 81 mg daily tomorrow. August 27. She has no specific complaints. She states she feels that her abdomen is "full of fluid". She saw the beauty culture teacher this morning who left her with the impression that she still has significant heart failure. She declined increasing dose of clonidine after was ordered last visit. She also reported side effects with Imdur of tachycardia and worsening dyspnea and does not want to take it. August 30. She reports increased dyspnea at this time which started earlier this morning. She does not report chest pain. September 01. She has no new complaints. States her cough is more productive. September 02. She has no new complaints. - Constitutional Vitals: Temp Pulse Resp BP Pulse Ox 98.9 F 71 18 175/68 95 09/02/17 06:40 09/02/17 06:40 09/02/17 06:40 09/02/17 06:40 09/02/17 06:40 Exam: She is sitting on the side of the bed and appears to be resting Quite. She is not dyspneic in conversation. Reviewed her medications and lab results. Internal Medicine: Result - Labs CBC & Chem 7: 09/02/17 06:03 09/02/17 06:03 Labs: Short CBC 09/02/17 Range/Units 06:03 WBC 8.3 (4.3-11.1) K/mcL Hgb 8.4 L (11.5-15.4) g/dL Hct 27.4 L (35.3-44.9) % Plt Count 94 L (140-400) K/mcL Neutrophils # 5.9 (1.6-8.9) K/mcL BMP 09/02/17 06:03 Sodium 142 Potassium 3.1 L Chloride 97 L Carbon Dioxide 36 H BUN 20 Creatinine 1.17 H Glucose 162 H Calcium 8.8 - ABG Interpretation ABG results: PT/INR, D-dimer PT 12.1 Seconds (9.4-12.1) 08/24/17 05:15 - VTE Documentation of Mechanical Device: Graduated compression elastic hosiery Consult Discharge Plan - Plan Referrals: Alejandra Osman, POLICE MATRON [Primary Care Provider] - 1 week
[2017-09-02] MEDS: Magnesium Oxide 400 MG TABLET PO SCH (11:57)
[2017-09-02] MEDS: Fluticasone Propionate Nasal 50 MCG/SPRAY BOTTLE NS SCH (11:59)
[2017-09-03] MEDS: Albuterol 2.5 MG/3 ML NEBULIZER IH SCH ×5 (00:02→21:43)
[2017-09-03] MEDS: cloNIDine HCl 0.1 MG TABLET PO SCH ×3 (05:07→21:28)
[2017-09-03] MEDS: Ascorbic Acid 500 MG TABLET PO SCH (05:08)
[2017-09-03] MEDS: Fluticasone Propionate Nasal 50 MCG/SPRAY BOTTLE NS SCH (08:18)
[2017-09-03] MEDS: Cyanocobalamin (B-12) 1,000 MCG TABLET PO SCH (08:20)
[2017-09-03] MEDS: Isosorbide MONOnitrate (24 HR) 30 MG TAB.ER.24H PO SCH (08:20)
[2017-09-03] MEDS: hydrALAZINE 25 MG TABLET PO SCH ×3 (08:21→21:27)
[2017-09-03] MEDS: Magnesium Oxide 400 MG TABLET PO SCH (08:21)
[2017-09-03] MEDS: Bumetanide 1 MG TABLET PO SCH (08:22)
[2017-09-03] MEDS: *HR* Glimepiride 2 MG TABLET PO SCH (08:22)
[2017-09-03] MEDS: Budesonide Neb 0.5 MG/2 ML IH SCH (11:00)
[2017-09-03] MEDS: ALPRAZolam 0.25 MG TABLET PO PRN (21:31)
[2017-09-04] MEDS: Ascorbic Acid 500 MG TABLET PO SCH (04:42)
[2017-09-04] MEDS: cloNIDine HCl 0.1 MG TABLET PO SCH ×3 (04:42→21:43)
[2017-09-04] MEDS: Albuterol 2.5 MG/3 ML NEBULIZER IH SCH ×4 (05:18→22:55)
[2017-09-04] MEDS: Budesonide Neb 0.5 MG/2 ML IH SCH (09:51)
[2017-09-04] MEDS: Fluticasone Propionate Nasal 50 MCG/SPRAY BOTTLE NS SCH (09:55)
[2017-09-04] MEDS: hydrALAZINE 25 MG TABLET PO SCH ×3 (09:55→21:42)
[2017-09-04] MEDS: Cyanocobalamin (B-12) 1,000 MCG TABLET PO SCH (09:56)
[2017-09-04] MEDS: Bumetanide 1 MG TABLET PO SCH (09:56)
[2017-09-04] MEDS: Isosorbide MONOnitrate (24 HR) 30 MG TAB.ER.24H PO SCH (09:56)
[2017-09-04] MEDS: Magnesium Oxide 400 MG TABLET PO SCH (09:56)
[2017-09-04] MEDS: *HR* Glimepiride 2 MG TABLET PO SCH (10:01)
[2017-09-04] MEDS: DiphenhydraMINE CREAM 28.4 GM TUBE TP PRN ×2 (12:12→21:44)
[2017-09-05] MEDS: Albuterol 2.5 MG/3 ML NEBULIZER IH SCH ×2 (04:37→08:57)
[2017-09-05] MEDS: DiphenhydraMINE CREAM 28.4 GM TUBE TP PRN (05:30)
[2017-09-05] MEDS: Ascorbic Acid 500 MG TABLET PO SCH (05:30)
[2017-09-05] MEDS: cloNIDine HCl 0.1 MG TABLET PO SCH (05:30)
[2017-09-05 07:03] VITALS: BP 147/69
[2017-09-05] MEDS: Isosorbide MONOnitrate (24 HR) 30 MG TAB.ER.24H PO SCH (07:56)
[2017-09-05] MEDS: Bumetanide 1 MG TABLET PO SCH (07:56)
[2017-09-05] MEDS: hydrALAZINE 25 MG TABLET PO SCH (07:56)
[2017-09-05] MEDS: Magnesium Oxide 400 MG TABLET PO SCH (07:57)
[2017-09-05] MEDS: Cyanocobalamin (B-12) 1,000 MCG TABLET PO SCH (07:58)
[2017-09-05] MEDS: *HR* Glimepiride 2 MG TABLET PO SCH (08:00)
[2017-09-05] MEDS: Fluticasone Propionate Nasal 50 MCG/SPRAY BOTTLE NS SCH (08:01)
[2017-09-05] MEDS: Budesonide Neb 0.5 MG/2 ML IH SCH (08:58)
--- NOTE | 2017-09-05 10:29 | Discharge Summary ---
Date of Encounter: 09/05/17 Time of Encounter: 10:20 - Discharge Diagnosis (1) Acute diastolic congestive heart failure Priority: Primary Status: Acute (2) COPD with hypoxia Priority: Secondary Status: Acute (3) Hypertension Priority: Secondary Status: Chronic Qualifiers: Hypertension type: essential hypertension Qualified Code(s): I10 - Essential (primary) hypertension (4) Anemia Priority: Secondary Status: Chronic Qualifiers: Anemia type: unspecified type Qualified Code(s): D64.9 - Anemia, unspecified (5) Type 2 diabetes mellitus Priority: Secondary Status: Chronic Qualifiers: Diabetes mellitus complication status: with kidney complications Diabetes mellitus complication detail: with chronic kidney disease Diabetes mellitus shelter insulin use: unspecified shelter insulin use status Chronic kidney disease stage: stage 3 (moderate) Qualified Code(s): E11.22 - Type 2 diabetes mellitus with diabetic chronic kidney disease; N18.3 - Chronic kidney disease, stage 3 (moderate); N18.3 - Chronic kidney disease, stage 3 (moderate) (6) Gout Priority: Secondary Status: Chronic Qualifiers: Gout site: unspecified site Gout etiology: unspecified cause Chronicity: chronic Presence of tophus: without tophus Qualified Code(s): M1A.9XX0 - Chronic gout, unspecified, without tophus (tophi) (7) Hypokalemia Priority: Secondary Status: Acute (8) Hypomagnesemia Priority: Secondary Status: Acute - Discharge Medications Prescriptions: Allopurinol [Zyloprim 100 MG] 100 mg PO DAILY #30 tablet Ascorbic Acid [Vitamin C] 500 mg PO DAILY@0630 #30 tablet Bumetanide [Bumex] 1 mg PO DAILY #30 tablet cloNIDine HCl [Clonidine HCl] 0.6 mg PO Q8H #180 tab Cyanocobalamin (B-12) [Vitamin B12] 1,000 mcg PO DAILY #30 tablet Ferrous Sulfate 325 mg PO DAILY@0630 #30 tablet Hydralazine HCl 100 mg PO TID #90 tablet Isosorbide MONOnitrate (24 HR) [Imdur] 30 mg PO DAILY #30 tab.er.24h Labetalol [Trandate] 200 mg PO BID #120 tablet Magnesium Oxide [Mag-Ox] 400 mg PO DAILY #7 tablet Potassium Chloride [K-Tab ER] 20 meq PO BID #60 tablet.er Home Medications: Oxygen 2 l NS AD 10/30/16 [History] Allopurinol [Zyloprim 100 MG] 100 mg PO DAILY 01/24/17 [History] Fluticasone Propionate Nasal [Flonase] 2 spr NS QAM 07/25/17 [History] Furosemide [Lasix] 40 mg PO DAILY 08/20/17 [History] Sennosides/Docusate Sodium [Senna Plus] 1 each PO BID PRN tablet 08/23/17 [Rx] Furosemide [Lasix] 20 mg PO DAILY 30 Days tablet 08/26/17 [Rx] Allopurinol [Zyloprim 100 MG] 100 mg PO DAILY #30 tablet 09/05/17 [Rx] Ascorbic Acid [Vitamin C] 500 mg PO DAILY@0630 #30 tablet 09/05/17 [Rx] Aspirin 81 mg PO DAILY #0 09/05/17 [Rx] Bumetanide [Bumex] 1 mg PO DAILY #30 tablet 09/05/17 [Rx] Cyanocobalamin (B-12) [Vitamin B12] 1,000 mcg PO DAILY #30 tablet 09/05/17 [Rx] Ferrous Sulfate 325 mg PO DAILY@0630 #30 tablet 09/05/17 [Rx] Hydralazine HCl 100 mg PO TID #90 tablet 09/05/17 [Rx] Isosorbide MONOnitrate (24 HR) [Imdur] 30 mg PO DAILY #30 tab.er.24h 09/05/17 [ Rx] Labetalol [Trandate] 200 mg PO BID #120 tablet 09/05/17 [Rx] Magnesium Oxide [Mag-Ox] 400 mg PO DAILY #7 tablet 09/05/17 [Rx] Potassium Chloride [K-Tab ER] 20 meq PO BID #60 tablet.er 09/05/17 [Rx] cloNIDine HCl [Clonidine HCl] 0.6 mg PO Q8H #180 tab 09/05/17 [Rx] Allergies/Adverse Reactions: 3 Allergy/AdvReac Type Severity Reaction Status Date / Time Amoxicillin Allergy Rash Verified 07/25/17 09:42 atorvastatin [From Lipitor] Allergy See Verified 07/25/17 09:42 Comments cefdinir [From Omnicef] Allergy Vomiting Verified 08/19/17 22:21 cephalexin [From Keflex] Allergy See Verified 07/25/17 09:42 Comments Cortisone Allergy Redness of Verified 08/19/17 22:20 Skin doxycycline Allergy See Verified 07/30/17 07:35 Comments Erythromycin Base Allergy Cramping Verified 08/19/17 22:21 of the Muscles iodine Allergy SHAKING Verified 07/25/17 09:42 levofloxacin [From Levaquin] Allergy LIP Verified 07/25/17 09:42 SWELLING sitagliptin [From Januvia] Allergy Difficulty Verified 07/25/17 09:42 Breathing sulfamethoxazole Allergy Rash Verified 07/25/17 09:42 [From Bactrim] trimethoprim [From Bactrim] Allergy Rash Verified 07/25/17 09:42 amlodipine [From Norvasc] AdvReac SEE COMMENT Verified 07/25/17 09:42 cefuroxime [From Ceftin] AdvReac MUSCLE Verified 07/25/17 09:42 CRAMPS enalaprilat [From Vasotec] AdvReac Cough Verified 08/19/17 22:17 fluoxetine [From Prozac] AdvReac SEE COMMENT Verified 07/25/17 09:42 metoprolol AdvReac Dizziness Verified 07/25/17 09:42 nifedipine AdvReac Headache Verified 07/25/17 09:42 nystatin AdvReac See Verified 08/19/17 22:21 Comments Oxycodone AdvReac Headache Verified 07/20/17 23:21 Paroxetine [From Paxil] AdvReac CHILLS AND Verified 07/25/17 09:42 ITCH Prazosin AdvReac TACHYCARDIA Verified 07/25/17 09:42 Saxagliptin [From Onglyza] AdvReac UNKNOWN Verified 07/25/17 09:42 PER PT sertraline [From Zoloft] AdvReac Hallucinati Verified 07/25/17 02:25 ng simvastatin [From Zocor] AdvReac MUSCLE Verified 07/25/17 09:42 WEAKNESS hydrin Allergy See Uncoded 08/19/17 22:20 Comments Date of admission: 08/23/17 18:51 Primary care physician: Avtar Osman D.O. Consults: 08/23/17 19:30 Consult to Occupational Therapy [CONS] Routine Comment: Evaluate, develop and implement POC Reason for Consult: Evaluate, develop and implement POC Consult to Physical Therapy [CONS] Routine Comment: Evaluate, develop and implement POC Reason for Consult: Evaluate, develop and implement POC 08/23/17 19:31 Consult to Administrative Services Director [CONS] Routine Reason for SW Consult: d/c planning 08/23/17 23:05 Consult to Administrative Services Director [CONS] Routine Reason for SW Consult: POssible DC planning. - Patient Status Disposition: Home, Self-Care Functional capacity at discharge: uses cane/walker Overall status at discharge: patient is progressing back to baseline - Discharge Instructions Follow Up With: Avtar Osman DO [Partnered Physician] - 09/09/17 1:00 pm (Hosp F/U with [facility] CLIENT SERVICES ASSISTANT Pattie Bowman) - Diet and Activity Activity: as per physical therapy, resume usual activities as tolerated, wear oxygen at all times Diet: diabetic diet Hospital course: Ms. Thorpe is a 77 year old female who was hospitalized at [facility] August 20 after presenting to [facility] with dyspnea. She was transferred to [facility] and diagnosed with diastolic heart failure and acute and chronic respiratory failure. She was stabilized and admitted to [facility] swing bed for ongoing care needs. Initial orders were written by the discharging physicians at [facility]. I saw her on August 24 and performed the swing bed history and physical. She continued on hydralazine. Isosorbide was added and clonidine dose was increased to improve blood pressure. Her blood pressure did improve on this regimen and she will continue this at home. Anemia testing showed iron 47, transferrin saturation 13%, ferritin 72, B12 160 , and folate 12.8. She was given a B12 injection and started on oral B12 supplement. She was also given oral ferrous sulfate with vitamin C and these will be continued at discharge. Lasix was changed to Bumex 1 mg daily. She had clinical improvement. BNP peptide was 312 on September 02. Supplemental potassium was given because of hypokalemia. Her PCP can monitor labs. On September 05 she was stable for discharge home. Room air oximetry showed 82% saturation on room air. Oxygen was reinstituted immediately for patient comfort and safety. She will be discharged on 2 L/m 24/ with portable gas and concentrator. Diagnosis is COPD with hypoxemia. She will follow with her PCP within one week. - Time Spent with Patient Total time spent providing and/or coordinating discharge services: - Constitutional Vitals: Temp Pulse Resp BP Pulse Ox 98.2 F 67 18 147/69 82 09/05/17 06:52 09/05/17 06:52 09/05/17 09:02 09/05/17 06:52 09/05/17 09:02 - VTE Documentation of Mechanical Device: Graduated compression elastic hosiery
--- NOTE | 2017-09-05 11:10 | Physician Discharge Referral ---
Home Health/Hosp Referral Info Transfer to: Home Health Attending Provider: [place] Provider in Charge Post Discharge: PCP (Avtar Osman DO) - Diagnosis (1) Acute diastolic congestive heart failure Priority: Primary Status: Acute (2) COPD with hypoxia Priority: Secondary Status: Acute (3) Hypertension Priority: Secondary Status: Chronic (4) Anemia Priority: Secondary Status: Chronic (5) Type 2 diabetes mellitus Priority: Secondary Status: Chronic (6) Gout Priority: Secondary Status: Chronic (7) Hypokalemia Priority: Secondary Status: Acute (8) Hypomagnesemia Priority: Secondary Status: Acute - Respiratory Orders Oxygen / L per min (2 Liters per minute 18/03) Smoking Cessation: Smoking cessation has been advised. For more information, call the [place] Tobacco Quit Line at 4-896-LLVJ-NOW. - Diet/Nutrition Diet/Nutrition Orders: No Concentrated Sweets - Activity Activity Orders: Walker - Services Needed Following services are medically necessary services: Nursing, Home Health Aide, Physical Therapy, Occupational Therapy - Transfer Medications Prescriptions: Allopurinol [Zyloprim 100 MG] 100 mg PO DAILY #30 tablet Ascorbic Acid [Vitamin C] 500 mg PO DAILY@0630 #30 tablet Bumetanide [Bumex] 1 mg PO DAILY #30 tablet cloNIDine HCl [Clonidine HCl] 0.6 mg PO Q8H #180 tab Cyanocobalamin (B-12) [Vitamin B12] 1,000 mcg PO DAILY #30 tablet Ferrous Sulfate 325 mg PO DAILY@0630 #30 tablet Hydralazine HCl 100 mg PO TID #90 tablet Isosorbide MONOnitrate (24 HR) [Imdur] 30 mg PO DAILY #30 tab.er.24h Labetalol [Trandate] 200 mg PO BID #120 tablet Magnesium Oxide [Mag-Ox] 400 mg PO DAILY #7 tablet Potassium Chloride [K-Tab ER] 20 meq PO BID #60 tablet.er Home Medications: Oxygen 2 l NS AD 10/30/16 [History] Allopurinol [Zyloprim 100 MG] 100 mg PO DAILY 01/24/17 [History] Fluticasone Propionate Nasal [Flonase] 2 spr NS QAM 07/25/17 [History] Furosemide [Lasix] 40 mg PO DAILY 08/20/17 [History] Sennosides/Docusate Sodium [Senna Plus] 1 each PO BID PRN tablet 08/23/17 [Rx] Furosemide [Lasix] 20 mg PO DAILY 30 Days tablet 08/26/17 [Rx] Allopurinol [Zyloprim 100 MG] 100 mg PO DAILY #30 tablet 09/05/17 [Rx] Ascorbic Acid [Vitamin C] 500 mg PO DAILY@0630 #30 tablet 09/05/17 [Rx] Aspirin 81 mg PO DAILY #0 09/05/17 [Rx] Bumetanide [Bumex] 1 mg PO DAILY #30 tablet 09/05/17 [Rx] Cyanocobalamin (B-12) [Vitamin B12] 1,000 mcg PO DAILY #30 tablet 09/05/17 [Rx] Ferrous Sulfate 325 mg PO DAILY@0630 #30 tablet 09/05/17 [Rx] Hydralazine HCl 100 mg PO TID #90 tablet 09/05/17 [Rx] Isosorbide MONOnitrate (24 HR) [Imdur] 30 mg PO DAILY #30 tab.er.24h 09/05/17 [ Rx] Labetalol [Trandate] 200 mg PO BID #120 tablet 09/05/17 [Rx] Magnesium Oxide [Mag-Ox] 400 mg PO DAILY #7 tablet 09/05/17 [Rx] Potassium Chloride [K-Tab ER] 20 meq PO BID #60 tablet.er 09/05/17 [Rx] cloNIDine HCl [Clonidine HCl] 0.6 mg PO Q8H #180 tab 09/05/17 [Rx] Allergies/Adverse Reactions: 3 Allergy/AdvReac Type Severity Reaction Status Date / Time Amoxicillin Allergy Rash Verified 07/25/17 09:42 atorvastatin [From Lipitor] Allergy See Verified 07/25/17 09:42 Comments cefdinir [From Omnicef] Allergy Vomiting Verified 08/19/17 22:21 cephalexin [From Keflex] Allergy See Verified 07/25/17 09:42 Comments Cortisone Allergy Redness of Verified 08/19/17 22:20 Skin doxycycline Allergy See Verified 07/30/17 07:35 Comments Erythromycin Base Allergy Cramping Verified 08/19/17 22:21 of the Muscles iodine Allergy SHAKING Verified 07/25/17 09:42 levofloxacin [From Levaquin] Allergy LIP Verified 07/25/17 09:42 SWELLING sitagliptin [From Januvia] Allergy Difficulty Verified 07/25/17 09:42 Breathing sulfamethoxazole Allergy Rash Verified 07/25/17 09:42 [From Bactrim] trimethoprim [From Bactrim] Allergy Rash Verified 07/25/17 09:42 amlodipine [From Norvasc] AdvReac SEE COMMENT Verified 07/25/17 09:42 cefuroxime [From Ceftin] AdvReac MUSCLE Verified 07/25/17 09:42 CRAMPS enalaprilat [From Vasotec] AdvReac Cough Verified 08/19/17 22:17 fluoxetine [From Prozac] AdvReac SEE COMMENT Verified 07/25/17 09:42 metoprolol AdvReac Dizziness Verified 07/25/17 09:42 nifedipine AdvReac Headache Verified 07/25/17 09:42 nystatin AdvReac See Verified 08/19/17 22:21 Comments Oxycodone AdvReac Headache Verified 07/20/17 23:21 Paroxetine [From Paxil] AdvReac CHILLS AND Verified 07/25/17 09:42 ITCH Prazosin AdvReac TACHYCARDIA Verified 07/25/17 09:42 Saxagliptin [From Onglyza] AdvReac UNKNOWN Verified 07/25/17 09:42 PER PT sertraline [From Zoloft] AdvReac Hallucinati Verified 07/25/17 02:25 ng simvastatin [From Zocor] AdvReac MUSCLE Verified 07/25/17 09:42 WEAKNESS hydrin Allergy See Uncoded 08/19/17 22:20 Comments Certification: Further, I certify that my clinical findings support that this patient is homebound (i.e. absences from home require considerable and taxing effort and are for medical reasons or rastafarian services or infrequently or short duration when for other reasons) because: Homebound Reason: Leaving home requires considerable and taxing effort due to condition (COPD with hypoxemia, heart failure) Attestation: My signature below is to certify that this patient is under my care and that I, or nurse practitioner, or a physician's transition assistant working with me, has a face-to -face encounter with this patient.
== END 2017-09-05 13:46 | disposition home health service (06) | DRG 945 ==
LOC: INPPIK 18:51
PROVIDERS: ADMIT Internal Medicine; ATTEND Internal Medicine